=== PATIENT | female | born 1930 | race Caucasian/White ===

== ENCOUNTER → 2017-12-21 | Outpatient (REF) | payer MEDICARE, MEDICAID ==
[2017-10-04 13:49] VITALS: BMI 32.5
[~2017-12-21] MED LIST: ACET-2007 PO; ALBU8.5H IH; AMLO-99 PO; CALC-1088 PO; CALC-770 PO; CALC200T16 PO; CALC500T6 PO; CHOL10005 PO; CHOL200025 PO; CIPR-344 PO; CITA-139 PO; CLON-327 PO; FURO-47 PO; FURO40TA35 PO; GAB800PT PO; GABA-492 PO; GABA-503 PO; GABA-547 PO; GABA-551 PO; HYDR-2966 PO; HYDR25SU51 RC; LACT1CAP6 PO; LACT1CAP62 PO; LEVO50TA86 PO; LEVO88TA45 PO; LISI-362 PO; LISI-374 PO; LISI20TA29 PO; LOPE1LIQ49 PO; MAGN400C PO; METF-410 PO; METF-420 PO; METO-253 PO; METO-257 PO; METO200T12 PO; METO25TA93 PO; METO50TA19 PO; MULT-856 PO; OMEP-125 PO; ONDA4TAB PO; OXYB5TAB86 PO; PANT20TA27 PO; PNEU0.5D3 IM; POTA-30 PO; POTA20TA94 PO; PRAV80TA29 PO; PREG50CA48 PO; PRIM50TA FT; PRIM50TA PO; PROP40TA45 PO; SULF-198 PO; TRAM-420 PO; TRIA15CR40 TP; VITA15LO PO
== END ==
LOC: ZZLCC 12:42
PROVIDERS: ATTEND Family Medicine
DX: R30.0 Dysuria (principal)
CPT/HCPCS: 81001; 87088

== ENCOUNTER → 2018-01-09 | Outpatient (REF) | payer MEDICARE, MEDICAID ==
[2017-10-04 13:49] VITALS: BMI 32.5
== END ==
LOC: ZZLCC 02:07
PROVIDERS: ATTEND Family Medicine
DX: N39.0 Urinary tract infection, site not specified (principal)
CPT/HCPCS: 81001; 87077; 87088; 87186

== ENCOUNTER → 2018-01-11 | Outpatient (REF) | payer MEDICARE, MEDICAID ==
[2017-10-04 13:49] VITALS: BMI 32.5
== END ==
LOC: ZZSENDIN 13:27
PROVIDERS: ATTEND Family Medicine
DX: E03.9 Hypothyroidism, unspecified (principal); I10 Essential (primary) hypertension
CPT/HCPCS: 82310; 82374; 82435; 82565; 82947; 83036; 84132; 84295; 84443; 84520; 85027

== ENCOUNTER 2018-05-03 18:11 | Inpatient (IN) | payer MEDICARE, MEDICAID ==
[2017-10-04 13:49] VITALS: Ht 154.9 cm; Wt 86.6 kg
[~2018-05-03] VITALS: Ht 154.9 cm; Wt 86.6 kg
[~2018-05-03 18:11] MED LIST changes: -ACET-2146 PO; -BENZOCAINE PO; -CALC-488 PO; -CALC625T64 PO; -CLON1PAT20 TD; -DICL100G39 TOP; -ESTR42.5 TOP; -HYDR25SU34 RC; -NYST15PO4 TP; -PANT40TA65 PO; -SUCR1TAB51 PO; -SULF1TAB24 PO
[2018-05-03] MEDS ORDERED: NS(*) 0.9% 1000 ML BAG 1,000 ML IV ONE (18:25)
--- NOTE | 2018-05-03 18:30 | ER Report ---
History and Physical Time Seen By MD: 18:30 Hx. of Stated Complaint: PT BROUGHT VIA AMBULANCE FROM [facility] AT [facility]. PT APPARENTLY HAS HAD SOME CONCERNING LABS, VOMITED X 2 IN THE LAST 24 HRS. PT MAIN CFOMPLQAINT IS HER VAGINA HURTS. NOTES BURNING ON URINATION HPI/ROS CHIEF COMPLAINT: Abnormal lab tests, pain with urination HISTORY OF PRESENT ILLNESS: This is an 87-year-old female. She had some labs drawn at [facility] where she resides. Dr. Morris ordered these because of increasing weakness and falls. These showed some problems with her kidney function and her potassium and sodium levels. Potassium was elevated at 6.2 and sodium was low at 124. Her Creatinine usually is at 0.8 and now is 1.6. She was brought here by ambulance for further evaluation for these abnormal labs. Patient tells me that she has no real complaints at this time other than being fatigued more than usual and having some burning in her vaginal area when she urinates. She has a history of chronic dysuria. She also has had some nausea and has vomited twice in the hours just prior to coming to the hospital. She denies any chest pain. She does not feel short of breath. She does have some lower abdominal pain. Allergies: Coded Allergies: Penicillins (Verified Allergy, Unknown, 01/19/15) Uncoded Allergies: AVOIDS ASPIRIN (Adverse Reaction, Mild, DUE TO RECENT BLEEDING, 02/12/14) Home Meds Active Scripts Tramadol Hcl (TRAMADOL HCL) 50 Mg Tablet, 0.5 TAB PO TID, #90 TAB 0 Refills Prov:DELON MORRIS MD 11/20/17 Calcium Carbonate (CALCIUM ANTACID) 200 Mg Tab.chew, 500 MG PO PRN Y for HEARTBURN, #60 TAB.CHEW Prov:KELLY PEREZ MD 10/11/17 Acetaminophen (MAPAP) 325 Mg Tablet, 650 MG PO Q6H Y for PAIN OR FEVER 100 OR GREATER, #30 TAB Prov:KELLY PEREZ MD 10/11/17 Primidone (PRIMIDONE) 50 Mg Tab, 4 TAB PO HS, #120 TAB 2 Refills Prov:ИРИНА SENIOR MD 06/20/17 Levothyroxine Sodium (LEVOTHYROXINE SODIUM) 50 Mcg Tablet, 50 MCG PO QDAY, #30 TAB 11 Refills Prov:ИРИНА SENIOR MD 06/20/17 Reported Medications Metoprolol Succinate (METOPROLOL SUCCINATE) 50 Mg Tab.er.24h, 1 TAB PO QDAY, TAB 05/03/18 Calcium Polycarbophil (FIBER LAX) 625 Mg Tablet, 625 MG PO 05/03/18 Citalopram Hydrobromide (CITALOPRAM HBR) 20 Mg Tablet, 10 MG PO QDAY, #5 TAB 05/03/18 Clonidine (CLONIDINE 0.2 MG/DAY) 1 Each Patch.tdwk, 1 EACH TD Q7DAY, PATCH.WK 05/03/18 Lisinopril (LISINOPRIL) 40 Mg Tablet, 20 MG PO QHS, TAB 10/03/17 Calcium Carb/Vit D3/Minerals (CALCIUM +D & MINERALS CHEW TAB) 1 Each Tab.chew, 1 EACH PO DAILY, TAB.CHEW 08/17/15 Discontinued Reported Medications Gabapentin (NEURONTIN) 400 Mg Capsule, 800 MG PO HS, CAPSULE 11/01/17 Lactobacillus Combination No.4 (PROBIOTIC) 1 Each Capsule, 1 EACH PO QDAY, CAPSULE 12/16/14 Discontinued Scripts Sulfamethoxazole/Trimet 800-160 Mg Tab (BACTRIM DS TABLET) 1 Each Tablet, 1 TAB PO Q12H for 3 Days, #6 TAB Prov:DELON MORRIS MD 01/12/18 Gabapentin (NEURONTIN) 800 Mg Tab, 800 MG PO HS, #60 TAB Prov:KELLY PEREZ MD 11/01/17 Pantoprazole Sodium (PANTOPRAZOLE SODIUM) 20 Mg Tablet.dr, 20 MG PO QDAY, #30 TAB Prov:KELLY PEREZ MD 10/11/17 Metoprolol Succinate (METOPROLOL SUCCINATE) 50 Mg Tab.er.24h, 100 MG PO BID, # 120 TAB Prov:KELLY PEREZ MD 10/11/17 Albuterol Sulfate 90 Mcg/Act (PROAIR HFA 90 MCG/ACT) 8.5 Gm Hfa.aer.ad, 1-2 PUFF IH 3-4XD, #1 INHALER 11 Refills Prov:ИРИНА SENIOR MD 06/20/17 Clonidine Hcl (CLONIDINE HCL) 0.1 Mg Tablet, 0.1 MG PO BID for Blood Pressure, # 60 TAB 11 Refills Prov:ИРИНА SENIOR MD 06/20/17 Citalopram Hydrobromide (CITALOPRAM HBR) 20 Mg Tablet, 1 TAB PO QDAY, #30 TAB 11 Refills Prov:NADEENИРИНА Matute MD 06/20/17 Past Medical/Surgical History She is hard or hearing with dementia. Coronary artery disease with history of heart attack, COPD, gastroesophageal reflux disease and previous GI bleeding from ulcers, diverticulosis and diverticulitis, osteoarthritis, hypothyroidism, surgeries include CABG, appendectomy, cholecystectomy, colectomy due to diverticulitis, and back surgery. She has also had a small skin cancer removal from her neck in the past. Hx Smoking: No Smoking Status: Never Smoker Exposure to Second Hand Smoke?: No Hx Substance Use Disorder: No Hx Alcohol Use: Yes Constitutional Vital Sign - Last 24 Hours 05/03/18 05/03/18 05/03/18 05/03/18 18:11 18:12 18:13 18:26 Temp 98.4 Pulse 81 80 80 Resp 20 B/P (MAP) 126/57 (80) 134/61 Pulse Ox 96 97 97 O2 Delivery Nasal Cannula 05/03/18 05/03/18 05/03/18 05/03/18 18:30 18:41 18:56 19:01 Pulse 81 79 73 B/P (MAP) 125/51 (75) Pulse Ox 97 98 97 05/03/18 05/03/18 05/03/18 05/03/18 19:12 19:16 19:30 19:31 Pulse 66 66 Resp 16 13 B/P (MAP) 109/35 (59) 103/46 (65) Pulse Ox 98 99 05/03/18 05/03/18 05/03/18 05/03/18 19:46 20:00 20:01 20:16 Pulse 83 82 78 Resp 13 19 21 B/P (MAP) 110/54 (72) Pulse Ox 99 99 99 05/03/18 05/03/18 05/03/18 20:21 20:36 20:51 Pulse 81 77 81 Resp 18 19 20 Pulse Ox 98 97 98 Intake and Output 05/03/18 05/03/18 05/04/18 15:00 23:00 07:00 Output Total 20 ml Balance -20 ml Physical Exam General Appearance: The patient is alert. Hard or hearing. No acute distress. Eyes: Pupils are equal. Reactive to light. No pallor, injection or icterus. Extraocular movements are intact. ENT: Mucous membranes are moist. Normal oral mucosa. Posterior oropharynx is normal. Dentures. Neck: Supple and non tender. No lymphadenopathy. Respiratory: Lungs are clear to auscultation. Cardiovascular: Regular rate and rhythm. Chronic bilateral lower extremity edema. Gastrointestinal: Abdomen is soft and non tender. Nondistended. Neurological: Demented but pleasant. She is oriented to self, but not time or place at this time. Skin: Warm and dry. Musculoskeletal: Extremities are nontender other than a little pain in pretibial are when checking edema. DIFFERENTIAL DIAGNOSIS: After history and physical exam, differential diagnosis was considered for hyponatremia, hyperkalemia, changes in renal function with an elevated creatinine compared to normal, all of this with some increased weakness and falls. Medical Decision Making Data Points Result Diagram: 05/03/18192905/03/181929 Laboratory Hematology Test 05/03/18 19:30 05/03/18 19:49 Red Blood Count 3.01 M/uL (4.17-5.56) Mean Corpuscular Volume 93.7 fL (80.0-96.0) Mean Corpuscular Hemoglobin 32.1 pg (26.0-33.0) Mean Corpuscular Hemoglobin Concent 34.2 g/dL (32.0-36.0) Red Cell Distribution Width 14.0 % (11.5-14.5) Mean Platelet Volume 7.2 fL (7.2-11.1) Neutrophils (%) (Auto) 73.9 % (39.4-72.5) Lymphocytes (%) (Auto) 17.5 % (17.6-49.6) Monocytes (%) (Auto) 6.9 % (4.1-12.4) Eosinophils (%) (Auto) 1.3 % (0.4-6.7) Basophils (%) (Auto) 0.4 % (0.3-1.4) Nucleated RBC Relative Count (auto) 0.0 /100WBC Neutrophils # (Auto) 8.6 K/uL (2.0-7.4) Lymphocytes # (Auto) 2.0 K/uL (1.3-3.6) Monocytes # (Auto) 0.8 K/uL (0.3-1.0) Eosinophils # (Auto) 0.2 K/uL (0.0-0.5) Basophils # (Auto) 0.0 K/uL (0.0-0.1) Nucleated RBC Absolute Count (auto) 0.00 K/uL Peripheral Blood Smear Yes Y/N Blood Gas Puncture Site Right brachial Blood Gas Patient Temperature 98.4 DEGREES Arterial Blood pH 7.36 (7.35-7.45) Arterial Blood Partial Pressure CO2 33 mmHg (32-37) Arterial Blood Partial Pressure O2 99 mmHg (60-80) Arterial Blood HCO3 19 mmol/L (20-26) Arterial Blood Oxygen Saturation 97 % (92-100) Arterial Blood Base Excess -7.0 mmol/L Ricky Test Nt avail Oxygen Liters/Minute 2l Sodium Level 123 mmol/L (137-145) Potassium Level 6.0 mmol/L (3.5-5.0) Chloride Level 97 mmol/L (98-107) Carbon Dioxide Level 16 mmol/L (22-31) Blood Urea Nitrogen 94 mg/dl (7-18) Creatinine 1.70 mg/dl (0.52-1.04) Glomerular Filtration Rate Calc 28.4 Random Glucose 94 mg/dl (75-110) Calcium Level 7.7 mg/dl (8.4-10.2) Total Bilirubin 0.2 mg/dl (0.2-1.3) Aspartate Amino Transf (AST/SGOT) 16 U/L (0-35) Alanine Aminotransferase (ALT/SGPT) 21 U/L (0-56) Alkaline Phosphatase 71 U/L (0-126) Total Creatine Kinase < 20 U/L (30-135) Total Protein 6.0 g/dl (6.3-8.2) Albumin 2.9 g/dl (3.5-5.0) Urine Color Yellow Urine Clarity Turbid Urine pH 5.0 pH (4.8-9.5) Urine Specific [place] 1.011 Urine Protein 30 mg/dL (NEGATIVE) Urine Glucose (UA) Negative mg/dL (NEGATIVE) Urine Ketones Negative mg/dL (NEGATIVE) Urine Blood Negative (NEGATIVE) Urine Nitrite Negative (NEGATIVE) Urine Bilirubin Negative (NEGATIVE) Urine Urobilinogen Negative mg/dL (0.2-1.9) Urine Leukocyte Esterase Large (NEGATIVE) Urine RBC 18 /HPF (0-2/HPF) Urine WBC 3021 /HPF (0-5/HPF) Urine WBC Clumps Many /HPF Urine Squamous Epithelial Cells Many /LPF (NONE-FEW) Urine Transitional Epithelial Cells Many /LPF (NONE-FEW) Urine Bacteria Many /HPF (NONE-FEW) Urine Mucus Few /HPF (NONE-FEW) Chemistry Test 05/03/18 19:30 05/03/18 19:49 White Blood Count 11.6 k/uL (4.5-11.0) Red Blood Count 3.01 M/uL (4.17-5.56) Hemoglobin 9.6 g/dL (12.0-16.0) Hematocrit 28.2 % (34.0-47.0) Mean Corpuscular Volume 93.7 fL (80.0-96.0) Mean Corpuscular Hemoglobin 32.1 pg (26.0-33.0) Mean Corpuscular Hemoglobin Concent 34.2 g/dL (32.0-36.0) Red Cell Distribution Width 14.0 % (11.5-14.5) Platelet Count 292 K/uL (150-450) Mean Platelet Volume 7.2 fL (7.2-11.1) Neutrophils (%) (Auto) 73.9 % (39.4-72.5) Lymphocytes (%) (Auto) 17.5 % (17.6-49.6) Monocytes (%) (Auto) 6.9 % (4.1-12.4) Eosinophils (%) (Auto) 1.3 % (0.4-6.7) Basophils (%) (Auto) 0.4 % (0.3-1.4) Nucleated RBC Relative Count (auto) 0.0 /100WBC Neutrophils # (Auto) 8.6 K/uL (2.0-7.4) Lymphocytes # (Auto) 2.0 K/uL (1.3-3.6) Monocytes # (Auto) 0.8 K/uL (0.3-1.0) Eosinophils # (Auto) 0.2 K/uL (0.0-0.5) Basophils # (Auto) 0.0 K/uL (0.0-0.1) Nucleated RBC Absolute Count (auto) 0.00 K/uL Peripheral Blood Smear Yes Y/N Blood Gas Puncture Site Right brachial Blood Gas Patient Temperature 98.4 DEGREES Arterial Blood pH 7.36 (7.35-7.45) Arterial Blood Partial Pressure CO2 33 mmHg (32-37) Arterial Blood Partial Pressure O2 99 mmHg (60-80) Arterial Blood HCO3 19 mmol/L (20-26) Arterial Blood Oxygen Saturation 97 % (92-100) Arterial Blood Base Excess -7.0 mmol/L Ricky Test Nt avail Oxygen Liters/Minute 2l Glomerular Filtration Rate Calc 28.4 Calcium Level 7.7 mg/dl (8.4-10.2) Total Bilirubin 0.2 mg/dl (0.2-1.3) Aspartate Amino Transf (AST/SGOT) 16 U/L (0-35) Alanine Aminotransferase (ALT/SGPT) 21 U/L (0-56) Alkaline Phosphatase 71 U/L (0-126) Total Creatine Kinase < 20 U/L (30-135) Total Protein 6.0 g/dl (6.3-8.2) Albumin 2.9 g/dl (3.5-5.0) Urine Color Yellow Urine Clarity Turbid Urine pH 5.0 pH (4.8-9.5) Urine Specific [place] 1.011 Urine Protein 30 mg/dL (NEGATIVE) Urine Glucose (UA) Negative mg/dL (NEGATIVE) Urine Ketones Negative mg/dL (NEGATIVE) Urine Blood Negative (NEGATIVE) Urine Nitrite Negative (NEGATIVE) Urine Bilirubin Negative (NEGATIVE) Urine Urobilinogen Negative mg/dL (0.2-1.9) Urine Leukocyte Esterase Large (NEGATIVE) Urine RBC 18 /HPF (0-2/HPF) Urine WBC 3021 /HPF (0-5/HPF) Urine WBC Clumps Many /HPF Urine Squamous Epithelial Cells Many /LPF (NONE-FEW) Urine Transitional Epithelial Cells Many /LPF (NONE-FEW) Urine Bacteria Many /HPF (NONE-FEW) Urine Mucus Few /HPF (NONE-FEW) Urinalysis Test 05/03/18 19:49 Urine Color Yellow Urine Clarity Turbid Urine pH 5.0 pH (4.8-9.5) Urine Specific [place] 1.011 Urine Protein 30 mg/dL (NEGATIVE) Urine Glucose (UA) Negative mg/dL (NEGATIVE) Urine Ketones Negative mg/dL (NEGATIVE) Urine Blood Negative (NEGATIVE) Urine Nitrite Negative (NEGATIVE) Urine Bilirubin Negative (NEGATIVE) Urine Urobilinogen Negative mg/dL (0.2-1.9) Urine Leukocyte Esterase Large (NEGATIVE) Urine RBC 18 /HPF (0-2/HPF) Urine WBC 3021 /HPF (0-5/HPF) Urine WBC Clumps Many /HPF Urine Squamous Epithelial Cells Many /LPF (NONE-FEW) Urine Transitional Epithelial Cells Many /LPF (NONE-FEW) Urine Bacteria Many /HPF (NONE-FEW) Urine Mucus Few /HPF (NONE-FEW) EKG/Imaging EKG Interpretation 12 lead EKG: Rhythm: Sinus rhythm with first-degree AV block, rate 78 [place]: Left axis deviation QRS: Incomplete bundle ST segments: No ST elevation or depression, normal appearing T waves ED Course/Re-evaluation Clinical Indication for ER IV: Hydration, IV Access ED Course Repeat blood testing done and re-demonstrated the lab abnormalities. No sign of arrhythmia on EKG. Urinalysis by in-and-out catheter was done and shows evidence of urinary infection. The patient had a 500cc bolus of normal saline followed by 250cc/hr. Called and discussed with Dr. Clark. Blood and urine cultures obtained and admitted. Discussed with the patient's daughter. She is not sure of code status at this point and will be discussing with other family members and get back. At the present time, will have her a full code unless something happens that is not survivable. Decision to Disposition Date: May 03, 2018 Decision to Disposition Time: 20:45 Depart Departure Latest Vital Signs Vital Signs Date Time Temp Pulse Resp B/P (MAP) Pulse Ox O2 Delivery O2 Flow Rate FiO2 05/03/18 20:51 81 20 98 05/03/18 20:00 110/54 (72) 05/03/18 18:13 98.4 Nasal Cannula Impression: Primary Impression: Urinary tract infection Additional Impressions: Hyperkalemia Hyponatremia Condition: Condition Unchanged Disposition: Admitted from ER Problem Qualifiers Primary Impression: Urinary tract infection Urinary tract infection type: site unspecified Hematuria presence: without hematuria Qualified Codes: N39.0 - Urinary tract infection, site not specified YELITAZ DHILLON MD May 03, 2018 18:29
[2018-05-03] MEDS ORDERED: METO50TA19 PO (18:39)
[2018-05-03] MEDS ORDERED: CALC625T64 PO (18:39)
[2018-05-03] MEDS ORDERED: CITA-145 PO (18:39)
[2018-05-03] MEDS ORDERED: CLON1PAT20 TD (18:39)
--- NOTE | 2018-05-03 18:46 | EKG ---
FACILITY: [facility] - [place] PATIENT NAME: GERARD PITTMAN : [id number] MR: [id number] V: [id number] EXAM DATE: ORDERING PHYSICIAN: YELITZA DHILLON TECHNOLOGIST: RON Sandhu Reason : Blood Pressure : / mmHG Vent. Rate : 078 BPM Atrial Rate : 078 BPM P-R Int : 312 ms QRS Dur : 106 ms QT Int : 374 ms P-R-T Axes : 071 -36 082 degrees QTc Int : 426 ms Sinus rhythm with 1st degree AV block Left axis deviation Incomplete left bundle branch block Left atrial enlargement. Abnormal ECG No previous ECGs available Confirmed by MARCELO DEL RIO ([id number]) on 05/03/2018 7:56:10 PM Referred By: Confirmed By:MARCELO DEL RIO
[2018-05-03 19:43] LABS: PLATELET COUNT, AUTOMATED 292 K/uL (150-450)
--- NOTE | 2018-05-03 20:51 | History & Physical ---
History of Present Illness Chief Complaint Weakness and lower abd pain. History of Present Illness 87 yr old lady sent from [facility] after lab data showed significant electrolyte changes along with reported weakness and lower abd pain. Patient has dementia and not able to provide much history. Has a myriad of previous medical problems as documented. Due to changes in Na+ and K+ and probably UTI, ER doc advised admission. Some dysuria. Nausea and emesis x2 today. No diarrhea. History Problems: (1) Weakness Status: Chronic (2) Lumbar disc disease Status: Chronic (3) Coronary artery disease Status: Chronic Comment: S/P CABG (4) Hypertension Status: Chronic (5) Type II diabetes mellitus Status: Chronic (6) Hypothyroid Status: Chronic (7) Urge incontinence Status: Chronic (8) Essential tremor Status: Chronic (9) Osteopenia Status: Chronic (10) Diverticulosis Status: Chronic (11) Vitamin D insufficiency Status: Chronic Home Meds Active Scripts Tramadol Hcl (TRAMADOL HCL) 50 Mg Tablet, 0.5 TAB PO TID, #90 TAB 0 Refills Prov:DELON MORRIS MD 11/20/17 Calcium Carbonate (CALCIUM ANTACID) 200 Mg Tab.chew, 500 MG PO PRN Y for HEARTBURN, #60 TAB.CHEW Prov:KELLY PEREZ MD 10/11/17 Acetaminophen (MAPAP) 325 Mg Tablet, 650 MG PO Q6H Y for PAIN OR FEVER 100 OR GREATER, #30 TAB Prov:KELLY PEREZ MD 10/11/17 Primidone (PRIMIDONE) 50 Mg Tab, 4 TAB PO HS, #120 TAB 2 Refills Prov:ИРИНА ESNIOR MD 06/20/17 Levothyroxine Sodium (LEVOTHYROXINE SODIUM) 50 Mcg Tablet, 50 MCG PO QDAY, #30 TAB 11 Refills Prov:ИРИНА SENIOR MD 06/20/17 Reported Medications Metoprolol Succinate (METOPROLOL SUCCINATE) 50 Mg Tab.er.24h, 1 TAB PO QDAY, TAB 05/03/18 Calcium Polycarbophil (FIBER LAX) 625 Mg Tablet, 625 MG PO 05/03/18 Citalopram Hydrobromide (CITALOPRAM HBR) 20 Mg Tablet, 10 MG PO QDAY, #5 TAB 05/03/18 Clonidine (CLONIDINE 0.2 MG/DAY) 1 Each Patch.tdwk, 1 EACH TD Q7DAY, PATCH.WK 05/03/18 Lisinopril (LISINOPRIL) 40 Mg Tablet, 20 MG PO QHS, TAB 10/03/17 Calcium Carb/Vit D3/Minerals (CALCIUM +D & MINERALS CHEW TAB) 1 Each Tab.chew, 1 EACH PO DAILY, TAB.CHEW 08/17/15 Discontinued Reported Medications Gabapentin (NEURONTIN) 400 Mg Capsule, 800 MG PO HS, CAPSULE 11/01/17 Lactobacillus Combination No.4 (PROBIOTIC) 1 Each Capsule, 1 EACH PO QDAY, CAPSULE 12/16/14 Discontinued Scripts Sulfamethoxazole/Trimet 800-160 Mg Tab (BACTRIM DS TABLET) 1 Each Tablet, 1 TAB PO Q12H for 3 Days, #6 TAB Prov:DELON MORRIS MD 01/12/18 Gabapentin (NEURONTIN) 800 Mg Tab, 800 MG PO HS, #60 TAB Prov:KELLY PEREZ MD 11/01/17 Pantoprazole Sodium (PANTOPRAZOLE SODIUM) 20 Mg Tablet.dr, 20 MG PO QDAY, #30 TAB Prov:KELLY PEREZ MD 10/11/17 Metoprolol Succinate (METOPROLOL SUCCINATE) 50 Mg Tab.er.24h, 100 MG PO BID, # 120 TAB Prov:KELLY PEREZ MD 10/11/17 Albuterol Sulfate 90 Mcg/Act (PROAIR HFA 90 MCG/ACT) 8.5 Gm Hfa.aer.ad, 1-2 PUFF IH 3-4XD, #1 INHALER 11 Refills Prov:ИРИНА SENIOR MD 06/20/17 Clonidine Hcl (CLONIDINE HCL) 0.1 Mg Tablet, 0.1 MG PO BID for Blood Pressure, # 60 TAB 11 Refills Prov:ИРИНА SENIOR MD 06/20/17 Citalopram Hydrobromide (CITALOPRAM HBR) 20 Mg Tablet, 1 TAB PO QDAY, #30 TAB 11 Refills Prov:ИРИНА SENIOR MD 06/20/17 Allergies: Coded Allergies: Penicillins (Verified Allergy, Unknown, 01/19/15) Uncoded Allergies: AVOIDS ASPIRIN (Adverse Reaction, Mild, DUE TO RECENT BLEEDING, 02/12/14) Patient History: FH: colon cancer MOTHER, Onset: FH: coronary artery disease FATHER BROTHER OR SISTER BROTHER OR SISTER FHx: diabetes mellitus BROTHER OR SISTER BROTHER OR SISTER Hx Smoking: No Smoking Status: Never Smoker Exposure to Second Hand Smoke?: No Caffeine Intake: Coffee Caffeine/Cups Per Day: 1 Hx Alcohol Use: Yes Hx Substance Use Disorder: No Review of Systems Neurological: Confusion, Weakness Cardiovascular: Orthostatic Hypotension Respiratory: No Shortness of Breath, No Cough, No Wheezing Gastrointestinal: Nausea, Vomiting, Abdominal Pain Genitourinary: Dysuria Musculoskeletal: Impaired Mobility Exam Vital Signs Vital Signs Date Time Temp Pulse Resp B/P (MAP) Pulse Ox O2 Delivery O2 Flow Rate FiO2 05/03/18 20:51 81 20 98 05/03/18 20:00 110/54 (72) 05/03/18 18:13 98.4 Nasal Cannula General Appearance: Awake, No Acute Distress, Afebrile Neuro: Other (Mostly confused to recent events and past history) Cardiovascular: Regular Rate and Rhythm, Other (VERY soft S1S2. ) Respiratory: Clear to Auscultation Chest: No Tenderness GI: Other (BS are active. Moderate tenderness directly over bladder. No organomegaly or masses.) : No CVA Tenderness Extremities: Soft and Non Tender, Warm, Pulses, Perfused, Other (Bilat edema 1/ 4 below knees.) Integumentary: Other (Superficial pressure lesions left groin and right buttock. These are clean and not infected in appearance. ) Psych: Appropriate Mood & Affect, Other (Oriented to place/ person only.) Medical Decision Making Data Points Result Diagram: 05/03/18192905/03/181929 Item Value Date Time Urine Clarity Turbid 05/03/181948 Urine pH 5.0 pH 05/03/181948 Urine Specific [place] 1.011 05/03/181948 Urine Protein 30 mg/dL 05/03/181948 Urine Glucose (UA) Negative mg/dL 05/03/181948 Urine Ketones Negative mg/dL 05/03/181948 Urine Blood Negative 05/03/181948 Urine Nitrite Negative 05/03/181948 Urine Bilirubin Negative 05/03/181948 Urine Urobilinogen Negative mg/dL 05/03/181948 Urine Leukocyte Esterase Large H 05/03/181948 Urine RBC 18 /HPF 05/03/181948 Urine WBC 3021 /HPF 05/03/181948 Urine WBC Clumps Many /HPF 05/03/181948 Urine Squamous Epithelial Cells Many /LPF H 05/03/181948 Urine Transitional Epithelial Cells Many /LPF H 05/03/181948 Urine Bacteria Many /HPF H 05/03/181948 Calcium Level 7.7 mg/dl L 05/03/181929 Total Bilirubin 0.2 mg/dl 05/03/181929 Aspartate Amino Transf (AST/SGOT) 16 U/L 05/03/181929 Alanine Aminotransferase (ALT/SGPT) 21 U/L 05/03/181929 Total Creatine Kinase < 20 U/L L 05/03/181929 Total Protein 6.0 g/dl L 05/03/181929 Albumin 2.9 g/dl L 05/03/181929 Arterial Blood pH 7.36 05/03/181929 Arterial Blood Partial Pressure CO2 33 mmHg 05/03/181929 Arterial Blood Partial Pressure O2 99 mmHg *H 05/03/181929 Arterial Blood HCO3 19 mmol/L L 05/03/181929 EKG / Imaging EKG Interpretation Reviewed. Monitor Interpretation: Normal Sinus Rhythm Pre-Admit Course ED Medications Reviewed. Medical Record Review: Yes Assessment and Plan Problems: (1) Hyponatremia Status: Acute Assessment & Plan: Most likely due to lisinopril and possible GI symptoms ( emesis). Will hold lisinopril. IV NS slowly with follow-up labs later this evening and in AM. (2) Hyperkalemia Status: Acute Assessment & Plan: Probably due to acute renal changes and emesis. Will hold lisinopril and recheck lab later this evening. (3) Urinary tract infection Status: Acute Assessment & Plan: UA abnormal. Culture done. Blood cultures pending. Will start antibiotics IV initially with levaquin 250 mg with reassessment of renal function in AM. She says her penicillin allergy was itching and throat closing so will avoid penicillins and any relatives such as cephalosporins and penems. (4) ARF (acute renal failure) Status: Acute Assessment & Plan: Creat usually 0.5 or so. Now 1.7 due to emesis, poor fluid intake and lower BP. Will start NS IV and hold BP meds. Recheck in AM. Will need to alter antibiotic dose if creat not improved in AM. (5) Hypothyroid Status: Chronic Assessment & Plan: Continue current meds. (6) Hypertension Status: Chronic Assessment & Plan: Hold lisinopril, clonidine and metoprolol since BP l00-120 systolic. (7) Coronary artery disease Status: Chronic (8) Dementia Status: Chronic Assessment & Plan: Stable. No current treatment. Time Spent on Plan of Care: > 30 min Copies to: DELON MORRIS MD Venous Thromboembolism VTE Risk Physician Assess for VTE Risk: Yes Patient's VTE Risk: High VTE Diagnostic Test 2 Days Prior to Admit: No Antithrombotics Is Pt On Any Antithrombotics?: No Prophylaxis Tx Contraindicated Pharmacological Contraindicati: Renal Impairment Exam Sepsis Risk: No Definite Risk Problem Qualifiers (1) Urinary tract infection: Urinary tract infection type: site unspecified Hematuria presence: without hematuria Qualified Codes: N39.0 - Urinary tract infection, site not specified SOCORRO DEL RIO MD FACP May 03, 2018 20:51
[2018-05-03] MEDS ORDERED: cefTRIAXone 1 GM VIAL IVP ONE (20:55)
[2018-05-03 21:20] VITALS: BP 134/59
[2018-05-03] MEDS: NS(*) 0.9% 1000 ML BAG 1,000 ML IV SCH (22:25)
[2018-05-03] MEDS ORDERED: LEVOFLOXACIN/D5W 250 MG/50 ML 50 ML IVPB ONE (23:00)
[2018-05-04] MEDS ORDERED: ACET-2146 PO (02:55)
[2018-05-04] MEDS ORDERED: DICL100G39 TOP (02:55)
[2018-05-04] MEDS ORDERED: ESTR42.5 TOP (02:55)
[2018-05-04] MEDS ORDERED: CLON-327 PO (02:55)
[2018-05-04] MEDS ORDERED: NYST15PO4 TP (02:55)
[2018-05-04] MEDS ORDERED: CHOL10005 PO (02:55)
[2018-05-04 03:06] VITALS: BP 119/52
[2018-05-04] MEDS ORDERED: HYDR25SU34 RC (03:39)
[2018-05-04] MEDS ORDERED: BENZOCAINE PO (03:39)
[2018-05-04] MEDS ORDERED: CALC-488 PO (03:39)
[2018-05-04] MEDS: LEVOTHYROXINE SOD 0.05 MG TAB PO SCH (05:50)
[2018-05-04] MEDS ORDERED: LEVOTHYROXINE SOD 0.05 MG TAB PO SCH (06:00)
[2018-05-04 07:17] LABS: PLATELET COUNT, AUTOMATED 266 K/uL (150-450)
[2018-05-04 08:15] VITALS: BP 141/78
[2018-05-04] MEDS: NS(*) 0.9% 1000 ML BAG 1,000 ML IV SCH ×2 (08:36→19:01)
--- NOTE | 2018-05-04 09:32 | Antimicrobial Stewardship Note ---
Antimicrobial Stewardship Note Note Antimicrobial Stewardship Note: 87 yo F who presented with weakness, dysuria, nausea, vomiting, and abdominal pain. Pt with a history of dementia, unable to provide much history. Afebrile WBC 11.6 K- 6 on admission (could be secondary to lisinopril, recent Bactrim use) CrCl ~36ml/min UA- leukocyte esterase (+), many bacteria, 3021 WBC (+), (+) squamous and transitional cells ---cath UA Urine Cx pending Blood Cx x 2 pending Allergies: PCN - anaphylaxis 1. UTI- symptomatic, elevated WBC, UA (+) - unclear if truly cath UA- contaminated. Recommend treatment with levofloxacin 250mg po daily for 3-5 days. Follow cultures and sensitivities. Scr has improved to 1.1, CrCl appropriate for levofloxacin 250mg po daily. Raquel Hirsch, PharmD, OP RAQUEL HIRSCH May 04, 2018 09:32
--- NOTE | 2018-05-04 10:32 | Hospitalist Progress Note ---
Subjective Progress Notes Subjective This patient was admitted for a urinary infection. She had no acute changes overnight. Patient Complains of: Cardiovascular: No: Chest Pain Respiratory: No: Shortness of Breath Physical Exam Vital Signs Date Time Temp Pulse Resp B/P (MAP) Pulse Ox O2 Delivery O2 Flow Rate FiO2 05/04/18 03:06 98.4 87 119/52 (74) 96 Nasal Cannula 2.0 05/03/18 21:20 20 Intake and Output 05/05/18 07:00 Intake Total 1195 ml Balance 1195 ml Intake Oral 120 ml IV Total 1075 ml Cardiovascular: Regular Rate and Rhythm Respiratory: Clear to Auscultation Extremities: No Edema Integumentary: No Cyanosis Result Diagram: 05/04/18 0539 05/04/18 0539 Item Value Date Time Blood Culture - Preliminary Resulted 05/03/182100 Blood NO GROWTH AFTER 1 DAY, REINCUBATED Blood Culture - Preliminary Resulted 05/03/182054 Blood NO GROWTH AFTER 1 DAY, REINCUBATED Monitor Interpretation: Normal Sinus Rhythm Assessment and Plan Problems: (1) Hyponatremia Status: Acute Assessment & Plan: Her levels have been improving with IV fluids and stopping her lisinopril. (2) Hyperkalemia Status: Acute Assessment & Plan: Improved after stopping lisinopril. (3) Urinary tract infection Status: Acute Assessment & Plan: She did have large leukocytes on her urinalysis, but it was a contaminated sample. A culture is pending. We have elected to place her on a 3 day course of levofloxacin. (4) ARF (acute renal failure) Status: Acute Assessment & Plan: Improving with IV fluids. (5) Hypothyroid Status: Chronic Assessment & Plan: She is on chronic treatment with Synthroid. (6) Hypertension Status: Chronic Assessment & Plan: She had been on chronic treatment with lisinopril, clonidine , and metoprolol. All of these are currently on hold. Exam Sepsis Risk: No Definite Risk Problem Qualifiers (1) Urinary tract infection: Urinary tract infection type: site unspecified Hematuria presence: without hematuria Qualified Codes: N39.0 - Urinary tract infection, site not specified FEROZ WAY DO May 04, 2018 10:32
[2018-05-04 11:09] VITALS: BP 156/90
--- NOTE | 2018-05-04 13:18 | Medical Nutrition Therapy ---
Nutrition Anthropometrics Height (Inches): 61.00 Height (Calculated Centimeters: 154.237351 Weight (Pounds): 191 Weight (Calculated Kilograms): 86.636 Manjinder Nutrition Score: Adequate Manjinder Nutrition Risk Score: 12 Dietary Referral Nutrition Risk Factors: Nutrition Risk Comment: Physical Findings Physical Appearance: Obese BMI 30-39 Skin Appearance Skin Appearance: Edema Edema Location Modifier: Both Edema Location: Leg Type of Edema: Degree of Edema: 1+ Gastrointestinal Symptoms GI Symtoms: Nausea Tube Present: Bowel Sounds: Recent Bowel Pattern: Stool Characteristics: Nutritional Diagnosis Nutritional Risk Acuity 1: Acute/ES Renal Nutritional Risk Acuity 4: Good Appetite Past Medical History: T2DM,CAD,CABG, [place], GERD, diverticulosis, UTI, ARF, hyponatremia, hypokalemia, HTN Nutritional Acuity: 1-High Nutrition Problem/Etiology/Sym: Altered nutrition lab values related to physiological causes as evidence by improper kidney function with altered Na (130), K+ (5.6) and dehydration. Energy Requirement: 1346 ([place] Adj BMI >27.5) Protein Requirement: 69 (.8g/kg) Fluid Requirement: 2175 (25ml/kg >75yrs ) Diet Type: Diet as Tolerated NIKHIL/REG Nutrition Intervention: Encourage intake, Change diet (ADA diet ) Nutrition Monitoring & Eval Nutrition Goals: Eat 50-100% Meal RD Patient Assessment Time: [address] Assessment Type: RD Assessment Patient Nutrition Acuity: 1-High Follow Up Date: May 07, 2018 Nutritional Comment: 05/04 Pt admitted for UTI. Pt came in with nausea, weakness, fatigue and mild abdominal pain. Pt states that it hurts/rayo to urinate. Pt does have ARF. Creatinine continues to increase today it is (1.1). BUN (71) and K+ (5.6). Pt is on regular diet with 60% oral intake. Pt has low H/H, alb (2.5) and Na ranging from (123-130). Pt is on regular diet with 60% oral intake. Pt may benefit from ADA diet based on her hx T2DM. Will continue to monitor pt progress, labs, and encourage intake. -YULIA COLBERT May 04, 2018 11:58
[2018-05-04 14:54] VITALS: BP 126/53
[2018-05-04 19:53] VITALS: BP 129/83
[2018-05-04] MEDS ORDERED: LEVOFLOXACIN 500 MG TAB PO SCH (22:00)
[2018-05-05 03:07] VITALS: BP 111/54
[2018-05-05] MEDS: NS(*) 0.9% 1000 ML BAG 1,000 ML IV SCH ×2 (04:56→09:46)
[2018-05-05] MEDS: LEVOTHYROXINE SOD 0.05 MG TAB PO SCH (05:57)
[2018-05-05 07:12] VITALS: BP 128/78
[2018-05-05] MEDS: METOPROLOL SUCC XL 50 MG TABCR 50 MG TAB.ER.24H PO SCH (10:26)
[2018-05-05 10:42] VITALS: BP 130/67
[2018-05-05] MEDS: TRIMETH IVPB SCH ×2 (10:42→23:15)
[2018-05-05] MEDS: HYPROMELLOSE 0.4% LUB 15ML BTL OU PRN (10:42)
[2018-05-05] MEDS: D5W IVPB SCH ×2 (10:42→23:15)
[2018-05-05] MEDS: SULFA IVPB SCH ×2 (10:42→23:15)
--- NOTE | 2018-05-05 11:06 | Hospitalist Progress Note ---
Subjective Progress Notes Subjective No new problems reported. Urine culture is growing rather resistant E. coli. Physical Exam Vital Signs Date Time Temp Pulse Resp B/P (MAP) Pulse Ox O2 Delivery O2 Flow Rate FiO2 05/05/18 10:42 98.3 103 16 130/67 (88) 96 Nasal Cannula 1.0 Intake and Output 05/06/18 07:00 Intake Total 240 ml Balance 240 ml Intake Oral 240 ml # Voids 1 General Appearance: Alert, Awake Result Diagram: 05/04/18 0539 05/05/18 0526 Assessment and Plan Problems: (1) Hyponatremia Status: Acute Assessment & Plan: Her levels have been improving with IV fluids and stopping her lisinopril. (2) Hyperkalemia Status: Acute Assessment & Plan: Improved/resolved after stopping lisinopril. (3) Urinary tract infection Status: Acute Assessment & Plan: She did have large leukocytes on her urinalysis. Culture is growing fairly resistant E. coli. Will switch to IV Bactrim. (4) ARF (acute renal failure) Status: Acute Assessment & Plan: Improved with IV fluids. Creatinine is now normal at 0.7. (5) Hypothyroid Status: Chronic Assessment & Plan: She is on chronic treatment with Synthroid. (6) Hypertension Status: Chronic Assessment & Plan: She had been on chronic treatment with lisinopril, clonidine , and metoprolol. Lisinopril and clonidine have been stopped. We will resume her metoprolol. Exam Sepsis Risk: No Definite Risk Problem Qualifiers (1) Urinary tract infection: Urinary tract infection type: site unspecified Hematuria presence: without hematuria Qualified Codes: N39.0 - Urinary tract infection, site not specified REBEKAH PEREZ MD May 05, 2018 11:06
[2018-05-05 14:42] VITALS: BP 124/61
[2018-05-05 19:30] VITALS: BP 154/72
[2018-05-05] MEDS: PRIMIDONE 50 MG TAB PO SCH (20:33)
[2018-05-06 02:36] VITALS: BP 145/86
[2018-05-06] MEDS: NS(*) 0.9% 1000 ML BAG 1,000 ML IV SCH (03:41)
[2018-05-06] MEDS: LEVOTHYROXINE SOD 0.05 MG TAB PO SCH (05:52)
[2018-05-06 06:57] LABS: PLATELET COUNT, AUTOMATED 218 K/uL (150-450)
[2018-05-06 07:31] VITALS: BP 137/58
[2018-05-06] MEDS: METOPROLOL SUCC XL 50 MG TABCR 50 MG TAB.ER.24H PO SCH (09:37)
[2018-05-06] MEDS: NITROFURANTOIN MONO 100 MG PO SCH ×2 (09:37→21:20)
[2018-05-06 11:12] VITALS: BP 124/91
--- NOTE | 2018-05-06 11:12 | Hospitalist Progress Note ---
Subjective Progress Notes Subjective Still having vaginal burning/dysuria. Unchanged from prior to admission. Otherwise doing well. Physical Exam Vital Signs Date Time Temp Pulse Resp B/P (MAP) Pulse Ox O2 Delivery O2 Flow Rate FiO2 05/06/18 08:00 Nasal Cannula 1.0 05/06/18 07:31 98.5 96 14 137/58 (84) 95 Intake and Output 05/07/18 07:00 Intake Total 240 ml Balance 240 ml Intake Oral 240 ml # Voids 1 General Appearance: Alert, Awake, No Acute Distress Integumentary: No Jaundice, No Cyanosis Result Diagram: 05/06/1856 05/06/18555 Assessment and Plan Problems: (1) Hyponatremia Status: Acute Assessment & Plan: Her levels have been improving with IV fluids and stopping her lisinopril. Continue to follow. Will saline lock. (2) Anemia Status: Acute Assessment & Plan: Etiology unclear. No evidence of blood loss. Will stop IV Bactrim. Recheck Hgb at 1300 with B12/Folate/Iron studies/LDH/Haptoglobin/ reticulocyte count. Will check for occult blood in stools. She is asymptomatic. (3) Hyperkalemia Status: Acute Assessment & Plan: Improved/resolved after stopping lisinopril. (4) Urinary tract infection Status: Acute Assessment & Plan: She did have large leukocytes on her urinalysis. Culture is growing fairly resistant E. coli. She received IV Bactrim on 05/05. She is afebrile and has a normal WBC. Will switch to oral nitrofurantoin because stopping Bactrim related to the anemia. (5) ARF (acute renal failure) Status: Acute Assessment & Plan: Improved with IV fluids. Creatinine is now normal at 0.7. (6) Hypothyroid Status: Chronic Assessment & Plan: She is on chronic treatment with Synthroid. (7) Hypertension Status: Chronic Assessment & Plan: She had been on chronic treatment with lisinopril, clonidine , and metoprolol. Lisinopril and clonidine have been stopped. Metoprolol resumed. Exam Sepsis Risk: No Definite Risk Problem Qualifiers (1) Urinary tract infection: Urinary tract infection type: site unspecified Hematuria presence: without hematuria Qualified Codes: N39.0 - Urinary tract infection, site not specified HARIKA MARTINEZ MD May 06, 2018 11:12
[2018-05-06 13:28] LABS: PLATELET COUNT, AUTOMATED 252 K/uL (150-450)
[2018-05-06 16:02] VITALS: BP 131/75
[2018-05-06] MEDS: SUCRALFATE 1 GM TAB PO SCH ×2 (17:06→21:20)
[2018-05-06] MEDS: PANTOPRAZOLE SOD 40 MG IV VIAL IVP SCH (17:17)
[2018-05-06 21:23] VITALS: BP 146/75
[2018-05-06] MEDS: PRIMIDONE 50 MG TAB PO SCH (21:23)
[2018-05-07 04:12] VITALS: BP 146/75
[2018-05-07] MEDS: PANTOPRAZOLE SOD 40 MG IV VIAL IVP SCH ×2 (05:12→16:52)
[2018-05-07] MEDS: LEVOTHYROXINE SOD 0.05 MG TAB PO SCH (05:44)
[2018-05-07] MEDS: SUCRALFATE 1 GM TAB PO SCH ×4 (05:45→20:44)
[2018-05-07 06:15] LABS: PLATELET COUNT, AUTOMATED 230 K/uL (150-450)
[2018-05-07 07:55] VITALS: BP 135/69
--- NOTE | 2018-05-07 08:52 | General Surgery Consultation ---
History of Present Illness Requesting Physician Dr. Bueno, hospitalist service Reason for Consult Melena with anemia Chief Complaint Weakness History of Present Illness 87-year-old female is admitted to the hospitalist service with a urinary tract infection and hyperkalemia. She is also been found to have anemia which is getting worse during this hospitalization. She has been observed to have several melanotic stools by nursing. The patient denies any abdominal pain. She does have dementia and so history is difficult to obtain from her although she is alert and does cooperate the best that she can. She does admit to having a previous history of bleeding from her GI tract and underwent an EGD and colonoscopy in [place] [address] Lara. She cannot tell me with these results were. History Problems: (1) Knee pain Status: Chronic (2) Lumbar disc disease Status: Chronic (3) Weakness Status: Chronic (4) Dementia Status: Chronic (5) Coronary artery disease Status: Chronic (6) Hypertension Status: Chronic (7) Type II diabetes mellitus Status: Chronic (8) Hypothyroid Status: Chronic (9) Urge incontinence Status: Chronic (10) Essential tremor Status: Chronic (11) Osteopenia Status: Chronic (12) Diverticulosis Status: Chronic (13) Vitamin D insufficiency Status: Chronic (14) Hypoxia Onset Date: 07/21/2015 Status: Chronic Home Meds Active Scripts Tramadol Hcl (TRAMADOL HCL) 50 Mg Tablet, 0.5 TAB PO TID, #90 TAB 0 Refills Prov:DELON MORRIS MD 11/20/17 Primidone (PRIMIDONE) 50 Mg Tab, 4 TAB PO HS, #120 TAB 2 Refills Prov:ИРИНА SENIOR MD 06/20/17 Levothyroxine Sodium (LEVOTHYROXINE SODIUM) 50 Mcg Tablet, 50 MCG PO QDAY, #30 TAB 11 Refills Prov:ИРИНА SENIOR MD 06/20/17 Reported Medications [benzocaine lozenge] No Conflict Check, 1 UNIT PO every 24 hours Y for prn 05/04/18 Calcium Carbonate (CALCIUM CARBONATE) 500 Mg Tablet, 500 MG PO PRN 05/04/18 Hydrocortisone Acetate (HYDROCORTISONE ACETATE) 25 Mg Supp.rect, 25 MG RC HS Y for prn, SUPP.RECT 05/04/18 Cholecalciferol (Vitamin D3) (VITAMIN D3) 1,000 Unit Tablet, 1000 UNIT PO DAILY , TAB 05/04/18 Estrogens, Conjugated (Premarin) 0.625 Mg/Gram Cream.appl, 1 ALYSIA TOP MONTOYA TU FR 05/04/18 Nystatin 100,000 Unit/Gm Top Powder (NYSTATIN 100,000 UNIT/GM TOP POWDER) 15 Gm Powder, 15 GM TP PRN, TUBE 05/04/18 Diclofenac Sodium 1% Gel (VOLTAREN 1% GEL) 100 Gm Gel..gram., 4 G TOP QID 05/04/18 Clonidine Hcl (CLONIDINE HCL) 0.1 Mg Tablet, 0.2 MG PO BID, TAB 05/04/18 Acetaminophen 500 Mg Tab (ACETAMINOPHEN EXTRA STRENGTH) 500 Mg Tablet, 1000 MG PO TID, TAB 05/04/18 Metoprolol Succinate (METOPROLOL SUCCINATE) 50 Mg Tab.er.24h, 1 TAB PO QDAY, TAB 05/03/18 Calcium Polycarbophil (FIBER LAX) 625 Mg Tablet, 2 TAB PO DAILY 05/03/18 Citalopram Hydrobromide (CITALOPRAM HBR) 20 Mg Tablet, 10 MG PO QDAY, #5 TAB 05/03/18 Lisinopril (LISINOPRIL) 40 Mg Tablet, 20 MG PO QHS, TAB 10/03/17 Discontinued Reported Medications Clonidine (CLONIDINE 0.2 MG/DAY) 1 Each Patch.tdwk, 1 EACH TD Q7DAY, PATCH.WK 05/03/18 Calcium Carb/Vit D3/Minerals (CALCIUM +D & MINERALS CHEW TAB) 1 Each Tab.chew, 1 EACH PO DAILY, TAB.CHEW 08/17/15 Gabapentin (NEURONTIN) 400 Mg Capsule, 800 MG PO HS, CAPSULE 11/01/17 Lactobacillus Combination No.4 (PROBIOTIC) 1 Each Capsule, 1 EACH PO QDAY, CAPSULE 12/16/14 Discontinued Scripts Calcium Carbonate (CALCIUM ANTACID) 200 Mg Tab.chew, 500 MG PO PRN Y for HEARTBURN, #60 TAB.CHEW Prov:KELLY PEREZ MD 10/11/17 Acetaminophen (MAPAP) 325 Mg Tablet, 650 MG PO Q6H Y for PAIN OR FEVER 100 OR GREATER, #30 TAB Prov:KELLY PEREZ MD 10/11/17 Sulfamethoxazole/Trimet 800-160 Mg Tab (BACTRIM DS TABLET) 1 Each Tablet, 1 TAB PO Q12H for 3 Days, #6 TAB Prov:DELON MORRIS MD 01/12/18 Gabapentin (NEURONTIN) 800 Mg Tab, 800 MG PO HS, #60 TAB Prov:KELLY PEREZ MD 11/01/17 Pantoprazole Sodium (PANTOPRAZOLE SODIUM) 20 Mg Tablet.dr, 20 MG PO QDAY, #30 TAB Prov:KELLY PEREZ MD 10/11/17 Metoprolol Succinate (METOPROLOL SUCCINATE) 50 Mg Tab.er.24h, 100 MG PO BID, # 120 TAB Prov:KELLY PEREZ MD 10/11/17 Albuterol Sulfate 90 Mcg/Act (PROAIR HFA 90 MCG/ACT) 8.5 Gm Hfa.aer.ad, 1-2 PUFF IH 3-4XD, #1 INHALER 11 Refills Prov:ИРИНА SENIOR MD 06/20/17 Clonidine Hcl (CLONIDINE HCL) 0.1 Mg Tablet, 0.1 MG PO BID for Blood Pressure, # 60 TAB 11 Refills Prov:ИРИНА SENIOR MD 06/20/17 Citalopram Hydrobromide (CITALOPRAM HBR) 20 Mg Tablet, 1 TAB PO QDAY, #30 TAB 11 Refills Prov:ИРИНА SENIOR MD 06/20/17 Allergies: Coded Allergies: Penicillins (Verified Allergy, Severe, ANAPHYLAXIS, 05/04/18) 05/04/18: Pt reported her "throat closing" and itching. She was advised by her MD to never take a penicillin. Per pt report and MD confirmation. Uncoded Allergies: AVOIDS ASPIRIN (Adverse Reaction, Mild, DUE TO RECENT BLEEDING, 02/12/14) Family History: FH: colon cancer MOTHER, Onset: FH: coronary artery disease FATHER BROTHER OR SISTER BROTHER OR SISTER FHx: diabetes mellitus BROTHER OR SISTER BROTHER OR SISTER Review of Systems All Systems Reviewed/Normal: Yes, Except as Noted Neurological: Weakness Gastrointestinal: Melena Exam Vital Signs Vital Signs Date Time Temp Pulse Resp B/P (MAP) Pulse Ox O2 Delivery O2 Flow Rate FiO2 05/07/18 07:55 98.2 81 16 135/69 (91) 95 Nasal Cannula 1.0 General Appearance: Alert, Awake, No Acute Distress, Afebrile GI: Abd Soft and Non-Tender Extremities: Warm, Perfused Medical Decision Making Data Points Result Diagram: 05/07/18 0511 05/07/18 0511 Assessment and Plan Problems: (1) Melena Assessment & Plan: 05/07/18: We will proceed with EGD and colonoscopy. Patient is eating this morning and so this afternoon won't really be possible to get her bowel prep completed in time and nothing by mouth for the procedures. Will change her to clear diet and will start the prep this afternoon and will we'll plan on EGD and colonoscopy tomorrow. I have explained this plan to the patient and she indicates her understanding and agreement with this plan. H. pylori by serology is positive however these can remain positive for quite some time even after treatment. We'll biopsy her stomach during her EGD for PyloriTek to see if she is currently infected with H. pylori. We'll hold off on antibiotics until I can confirm that she has a current H. pylori infection. (2) Anemia Status: Acute Assessment & Plan: Etiology unclear. No evidence of blood loss. Will stop IV Bactrim. Recheck Hgb at 1300 with B12/Folate/Iron studies/LDH/Haptoglobin/ reticulocyte count. Will check for occult blood in stools. She is asymptomatic. (3) History of gastritis Status: Chronic (4) History of Helicobacter pylori infection Status: Chronic (5) History of colitis Status: Chronic Condition Stable Time Spent: < 30 min Venous Thromboembolism Antithrombotics Is Pt On Any Antithrombotics?: No Problem Qualifiers (1) Anemia: Anemia type: unspecified type Qualified Codes: D64.9 - Anemia, unspecified FEROZ NOVOA MD May 07, 2018 08:52
[2018-05-07] MEDS: NITROFURANTOIN MONO 100 MG PO SCH ×2 (08:58→20:44)
[2018-05-07] MEDS: METOPROLOL SUCC XL 50 MG TABCR 50 MG TAB.ER.24H PO SCH (08:58)
--- NOTE | 2018-05-07 10:09 | Hospitalist Progress Note ---
Subjective Progress Notes Subjective She has no complaints this morning. She had no acute events overnight. Blood in stools seemed to decrease after starting Pantoprazole and Carafate yesterday. Patient Complains of: Cardiovascular: No: Chest Pain Respiratory: No: Shortness of Breath Physical Exam Vital Signs Date Time Temp Pulse Resp B/P (MAP) Pulse Ox O2 Delivery O2 Flow Rate FiO2 05/07/18 07:55 98.2 81 16 135/69 (91) 95 Nasal Cannula 1.0 Intake and Output 05/08/18 07:00 Intake Total 240 ml Balance 240 ml Intake Oral 240 ml General Appearance: Alert, Awake, No Acute Distress, Afebrile Neuro: No Gross deficits Cardiovascular: Regular Rate and Rhythm Respiratory: No Respiratory Distress, Clear to Auscultation GI: Soft and Non-Tender Psych: Appropriate Mood & Affect Result Diagram: 05/07/1851005/07/18510 Assessment and Plan Problems: (1) Hyponatremia Status: Acute Assessment & Plan: Her levels have been improving with IV fluids and stopping her lisinopril. Continue to follow. Will saline lock. (2) Anemia Status: Acute Assessment & Plan: Etiology unclear. No evidence of blood loss. Will stop IV Bactrim. Recheck Hgb at 1300 today. She was positive for occult blood in stools. Dr. Bledsoe consulted for patient. She is asymptomatic. (3) Hyperkalemia Status: Acute Assessment & Plan: Improved/resolved after stopping lisinopril. (4) Urinary tract infection Status: Acute Assessment & Plan: She did have large leukocytes on her urinalysis. Culture is growing fairly resistant E. coli. She received IV Bactrim on 05/05. She is afebrile and has a normal WBC. Will switch to oral nitrofurantoin because stopping Bactrim related to the anemia. (5) ARF (acute renal failure) Status: Acute Assessment & Plan: Improved with IV fluids. Creatinine is now normal at 0.7. (6) Hypothyroid Status: Chronic Assessment & Plan: She is on chronic treatment with Synthroid. (7) Hypertension Status: Chronic Assessment & Plan: She had been on chronic treatment with lisinopril, clonidine , and metoprolol. Lisinopril and clonidine have been stopped. Metoprolol resumed. Exam Sepsis Risk: No Definite Risk Problem Qualifiers (1) Anemia: Anemia type: unspecified type Qualified Codes: D64.9 - Anemia, unspecified (2) Urinary tract infection: Urinary tract infection type: site unspecified Hematuria presence: without hematuria Qualified Codes: N39.0 - Urinary tract infection, site not specified VITALIY CANO ACCOUNT ANALYST May 07, 2018 10:09
[2018-05-07 12:14] VITALS: BP 114/82
[2018-05-07 13:05] LABS: PLATELET COUNT, AUTOMATED 256 K/uL (150-450)
[2018-05-07] MEDS ORDERED: PEG (High)/E-LYTE SOLN 4000 ML PO ONE (15:00)
[2018-05-07 15:01] VITALS: BP 132/62
--- NOTE | 2018-05-07 16:00 | Medical Nutrition Therapy ---
Nutrition Anthropometrics Height (Inches): 61.00 Height (Calculated Centimeters: 154.065361 Weight (Pounds): 191 Weight (Calculated Kilograms): 86.636 Manjinder Nutrition Score: Probably Inadequate Manjinder Nutrition Risk Score: 13 Dietary Referral Nutrition Risk Factors: Nutrition Risk Comment: Physical Findings Physical Appearance: Obese BMI 30-39 Skin Appearance Skin Appearance: Edema Edema Location Modifier: Both Edema Location: Leg Type of Edema: Degree of Edema: 1+ Gastrointestinal Symptoms GI Symtoms: Blood in Stool, Change in Bowel Pattern Tube Present: Bowel Sounds: Recent Bowel Pattern: Stool Characteristics: Nutritional Diagnosis Nutritional Risk Acuity 1: Acute/ES Renal Nutritional Risk Acuity 3: Nutrit Anemia Nutritional Risk Acuity 4: Good Appetite Past Medical History: T2DM,CAD,CABG, [place], GERD, diverticulosis, UTI, ARF, hyponatremia, hypokalemia, HTN, herpes zosters Nutritional Acuity: 1-High Nutrition Problem/Etiology/Sym: Altered nutrition lab values related to physiological causes as evidence by improper kidney function with altered Na (130), K+ (5.6) and dehydration. Energy Requirement: 1346 ([place] Adj BMI >27.5) Protein Requirement: 69 (.8g/kg) Fluid Requirement: 2175 (25ml/kg >75yrs ) Diet Type: Diet as Tolerated NIKHIL/REG Nutrition Intervention: Encourage intake Food Likes: likes black tea with honey, premade, with straw Nutrition Monitoring & Eval Nutrition Goals: Eat 50-100% Meal RD Patient Assessment Time: [address] Assessment Type: RD Re-Assessment Patient Nutrition Acuity: 1-High Follow Up Date: May 10, 2018 Nutritional Comment: 05/04 Pt admitted for UTI. Pt came in with nausea, weakness, fatigue and mild abdominal pain. Pt states that it hurts/rayo to urinate. Pt does have ARF. Creatinine continues to increase today it is (1.1). BUN (71) and K+ (5.6). Pt is on regular diet with 60% oral intake. Pt has low H/H, alb (2.5) and Na ranging from (123-130). Pt is on regular diet with 60% oral intake. Pt may benefit from ADA diet based on her hx T2DM. Will continue to monitor pt progress, labs, and encourage intake. -MT 05/07 Pt continues on regular diet consuming 75% to 100% of her meals. Pt has low H/H hgb (8.3) and hct (24.2) and low alb (2.7). Pt Na has slowly increased from (123) to (136). Pt creatinine is now WNR (.07). Pt is newly diagnosed with anemia. pt has blood in stool. Per doctor note, unsure etiology. no evidence of blood loss. Will stop IV Bactrim. Recheck Hgb at 1300 with B12/Folate/Iron studies/LDH/Haptoglobin/reticulocyte count. Pt urine culture had resistant e.coli. Will continue to monitor pt progress, labs, and encourage intake. -YULIA COLBERT May 07, 2018 09:05
[2018-05-07 18:48] VITALS: BP 132/66
[2018-05-07] MEDS: PRIMIDONE 50 MG TAB PO SCH (20:44)
[2018-05-08] VITALS (15 sets, daily range): BP systolic 92–141; BP diastolic 40–79
[2018-05-08] MEDS: HYPROMELLOSE 0.4% LUB 15ML BTL OU PRN (04:42)
[2018-05-08] MEDS: LEVOTHYROXINE SOD 0.05 MG TAB PO SCH (05:22)
[2018-05-08] MEDS: PANTOPRAZOLE SOD 40 MG IV VIAL IVP SCH ×2 (05:23→16:23)
[2018-05-08 05:45] LABS: PLATELET COUNT, AUTOMATED 216 K/uL (150-450)
[2018-05-08] MEDS: SUCRALFATE 1 GM TAB PO SCH ×4 (06:01→21:16)
[2018-05-08] MEDS ORDERED: LIDOCAINE MPF 1% 5 ML VIAL ONE ×2 (06:54→16:34)
[2018-05-08] MEDS ORDERED: DEXAMETHASONE SOD PHOS 10MG/ML ONE (06:54)
[2018-05-08] MEDS ORDERED: ROCURONIUM BROM 10 MG/ML 10 ML ONE (06:54)
[2018-05-08] MEDS ORDERED: ONDANSETRON 4 MG/2 ML VIAL ONE (06:54)
[2018-05-08] MEDS ORDERED: PROPOFOL EMUL(*) 10MG/ML 20 ML 40 ML ONE (06:54)
[2018-05-08] MEDS ORDERED: fentaNYL CITR 100 MCG/2 ML AMP ONE (06:54)
[2018-05-08] MEDS ORDERED: KETAMINE HCL 500 MG/10 ML VIAL ONE ×2 (07:55→16:35)
[2018-05-08] MEDS ORDERED: BISACODYL 5 MG TABEC PO ONE (08:05)
--- NOTE | 2018-05-08 08:09 | General Surgery Progress Note ---
Subjective Progress Notes Subjective No complaints. No blood for 2 days with 3 nonbloody BMs yesterday per RN. Pt refused bowel prep yesterday because she didn't want to poop all day. Physical Exam Vital Signs Date Time Temp Pulse Resp B/P (MAP) Pulse Ox O2 Delivery O2 Flow Rate FiO2 05/08/18 07:30 98.7 87 16 136/55 (82) 96 Nasal Cannula 1.0 Intake and Output 05/09/18 07:00 # Voids 1 General Appearance: Alert, Awake, No Acute Distress, Afebrile GI: Soft and Non-Tender Extremities: Warm, Perfused Result Diagram: 05/08/1852305/08/18523 Assessment and Plan Problems: (1) Melena Assessment & Plan: 05/07/18: We will proceed with EGD and colonoscopy. Patient is eating this morning and so this afternoon won't really be possible to get her bowel prep completed in time and nothing by mouth for the procedures. Will change her to clear diet and will start the prep this afternoon and will we'll plan on EGD and colonoscopy tomorrow. I have explained this plan to the patient and she indicates her understanding and agreement with this plan. H. pylori by serology is positive however these can remain positive for quite some time even after treatment. We'll biopsy her stomach during her EGD for PyloriTek to see if she is currently infected with H. pylori. We'll hold off on antibiotics until I can confirm that she has a current H. pylori infection. 05/08/18: Pt refused golytely yesterday so no bowel prep has been completed. She is now agreeing to bowel prep. Will give her bisacodyl tablets and mag citrate with plans for EGD and colonoscopy this evening. Pt agreeable with this plan. (2) Anemia Status: Acute Assessment & Plan: 1 episode of melena. May be due to PUD but also with h/o colitis. Will plan on EGD/colonoscopy. (3) History of gastritis Status: Chronic (4) History of Helicobacter pylori infection Status: Chronic (5) History of colitis Status: Chronic Condition Stable. Time Spent: < 30 min Exam Sepsis Risk: No Definite Risk Problem Qualifiers (1) Anemia: Anemia type: unspecified type Qualified Codes: D64.9 - Anemia, unspecified FEROZ NOVOA MD May 08, 2018 08:09
[2018-05-08] MEDS: NITROFURANTOIN MONO 100 MG PO SCH ×2 (08:17→21:16)
[2018-05-08] MEDS: METOPROLOL SUCC XL 50 MG TABCR 50 MG TAB.ER.24H PO SCH (08:17)
--- NOTE | 2018-05-08 09:04 | Hospitalist Progress Note ---
Subjective Progress Notes Subjective She has no complaints this morning. She states she didn't like the bowel prep yesterday. She states she couldn't drink that and didn't want to poop all day. Patient Complains of: Cardiovascular: No: Chest Pain Respiratory: No: Shortness of Breath Physical Exam Vital Signs Date Time Temp Pulse Resp B/P (MAP) Pulse Ox O2 Delivery O2 Flow Rate FiO2 05/08/18 07:30 98.7 87 16 136/55 (82) 96 Nasal Cannula 1.0 Intake and Output 05/09/18 07:00 # Voids 1 General Appearance: Alert, Awake, No Acute Distress, Afebrile Neuro: No Gross deficits Cardiovascular: Regular Rate and Rhythm Respiratory: No Respiratory Distress, Clear to Auscultation Psych: Alert & Oriented X3, Appropriate Mood & Affect Result Diagram: 05/08/1852305/08/18523 Assessment and Plan Problems: (1) Melena Assessment & Plan: She has had no further episodes of blood in stools since Monday. She had 3 bowel movements yesterday. She will be proceeding with EGD and Colonoscopy this evening with Dr. Bledsoe. (2) Anemia Status: Acute Assessment & Plan: Will stop IV Bactrim. She was positive for occult blood in stools. Dr. Bledsoe consulted for patient. She is asymptomatic. See Above. (3) Hyponatremia Status: Acute Assessment & Plan: Her levels have improved with IV fluids and stopping her lisinopril. She is now saline locked. Continue to follow. (4) Hyperkalemia Status: Acute Assessment & Plan: Improved/resolved after stopping lisinopril. (5) Urinary tract infection Status: Acute Assessment & Plan: She did have large leukocytes on her urinalysis. Culture is growing fairly resistant E. coli. She received IV Bactrim on 05/05. She is afebrile and has a normal WBC. Will switch to oral nitrofurantoin because stopping Bactrim related to the anemia. (6) ARF (acute renal failure) Status: Acute Assessment & Plan: Improved with IV fluids. Creatinine is now normal. (7) Hypothyroid Status: Chronic Assessment & Plan: She is on chronic treatment with Synthroid. (8) Hypertension Status: Chronic Assessment & Plan: She had been on chronic treatment with lisinopril, clonidine , and metoprolol. Lisinopril and clonidine have been stopped. Metoprolol resumed. Exam Sepsis Risk: No Definite Risk Problem Qualifiers (1) Anemia: Anemia type: unspecified type Qualified Codes: D64.9 - Anemia, unspecified (2) Urinary tract infection: Urinary tract infection type: site unspecified Hematuria presence: without hematuria Qualified Codes: N39.0 - Urinary tract infection, site not specified VITALIY CNAO May 08, 2018 09:04
[2018-05-08] MEDS ORDERED: MAGNESIUM CITRATE 300 ML BTL PO ONE (10:00)
[2018-05-08] MEDS ORDERED: NORMOSOL R SOLN(*) 1000 ML BAG 1,000 ML IV ONE (15:54)
[2018-05-08] MEDS ORDERED: PROPOFOL EMUL(*) 10MG/ML 20 ML 20 ML ONE (16:34)
[2018-05-08] MEDS ORDERED: NS 0.9% 20 ML SDV 20 ML ONE (16:37)
[2018-05-08] MEDS: PRIMIDONE 50 MG TAB PO SCH (21:17)
[2018-05-09 05:09] VITALS: BP 152/67
[2018-05-09] MEDS: LEVOTHYROXINE SOD 0.05 MG TAB PO SCH (05:22)
[2018-05-09] MEDS: PANTOPRAZOLE SOD 40 MG IV VIAL IVP SCH ×2 (05:22→16:25)
[2018-05-09] MEDS: SUCRALFATE 1 GM TAB PO SCH ×4 (05:30→20:35)
--- NOTE | 2018-05-09 07:22 | General Surgery Progress Note ---
Subjective Progress Notes Subjective No complaints. Physical Exam Vital Signs Date Time Temp Pulse Resp B/P (MAP) Pulse Ox O2 Delivery O2 Flow Rate FiO2 05/09/18 05:09 98.8 83 16 152/67 (95) 96 Nasal Cannula 2.0 General Appearance: Alert, Awake, No Acute Distress, Afebrile GI: Soft and Non-Tender Result Diagram: 05/09/18 0512 05/08/18 0524 Assessment and Plan Problems: (1) Melena Assessment & Plan: 05/07/18: We will proceed with EGD and colonoscopy. Patient is eating this morning and so this afternoon won't really be possible to get her bowel prep completed in time and nothing by mouth for the procedures. Will change her to clear diet and will start the prep this afternoon and will we'll plan on EGD and colonoscopy tomorrow. I have explained this plan to the patient and she indicates her understanding and agreement with this plan. H. pylori by serology is positive however these can remain positive for quite some time even after treatment. We'll biopsy her stomach during her EGD for PyloriTek to see if she is currently infected with H. pylori. We'll hold off on antibiotics until I can confirm that she has a current H. pylori infection. 05/08/18: Pt refused golytely yesterday so no bowel prep has been completed. She is now agreeing to bowel prep. Will give her bisacodyl tablets and mag citrate with plans for EGD and colonoscopy this evening. Pt agreeable with this plan. 05/09/18: Stable, H/H down some but no further melena. EGD completed, duodenitis and small superficial gastric ulcers seen but no active bleeding and no old blood were seen. Colonoscopy not performed because patient refused prep. If melena resumes or H/H continues to decline then she may require a colonoscopy if she'll consent for this. O/W, continue current ulcer therapy. H. pylori test was negative endoscopically so no need to treat for this although H. pylori ab positive but this can stay positive for a long time after treatment for H. pylori. (2) Anemia Status: Acute Assessment & Plan: 1 episode of melena. May be due to PUD but also with h/o colitis. Will plan on EGD/colonoscopy. (3) History of gastritis Status: Chronic (4) History of Helicobacter pylori infection Status: Chronic (5) History of colitis Status: Chronic Condition Stable. Time Spent: < 30 min Exam Sepsis Risk: No Definite Risk Problem Qualifiers (1) Anemia: Anemia type: unspecified type Qualified Codes: D64.9 - Anemia, unspecified FEROZ NOVOA MD May 09, 2018 07:22
[2018-05-09 08:04] VITALS: BP 141/64
[2018-05-09] MEDS ORDERED: FUROSEMIDE 20 MG/2 ML VIAL IVP ONE (08:35)
[2018-05-09] MEDS ORDERED: NS(*) 0.9% 1000 ML BAG 1,000 ML IV PRN (08:35)
[2018-05-09] MEDS: NS(*) 0.9% 1000 ML BAG 1,000 ML IV SCH (09:11)
[2018-05-09] MEDS: METOPROLOL SUCC XL 50 MG TABCR 50 MG TAB.ER.24H PO SCH (09:11)
--- NOTE | 2018-05-09 10:22 | Hospitalist Progress Note ---
Subjective Progress Notes Subjective She denies cp/sob. No concerns from staff. No more melanotic/maroon stools. Physical Exam Vital Signs Date Time Temp Pulse Resp B/P (MAP) Pulse Ox O2 Delivery O2 Flow Rate FiO2 05/09/18 09:14 95 Nasal Cannula 2.0 05/09/18 08:04 99.4 86 20 141/64 (89) Intake and Output 05/10/18 07:00 Intake Total 480 ml Balance 480 ml Intake Oral 480 ml # Voids 1 General Appearance: Alert, Awake, No Acute Distress GI: Soft and Non-Tender Result Diagram: 05/09/18 0505/08/18 0524 Assessment and Plan Problems: (1) Melena Assessment & Plan: She has had no further episodes of blood in stools since Monday. EGD was c/w non-bleeding superficial gastric ulcers and and duodenitis. Will continue PPI/Carafate. Hgb dropped today. Will recheck this afternoon. (2) Anemia Status: Acute Assessment & Plan: Secondary to GI bleed. She was positive for occult blood in stools. She is asymptomatic. See Above. (3) Hyponatremia Status: Resolved Assessment & Plan: Her levels have improved with IV fluids and stopping her lisinopril. She is now saline locked. Continue to follow. (4) Hyperkalemia Status: Acute Assessment & Plan: Improved/resolved after stopping lisinopril. (5) Urinary tract infection Status: Acute Assessment & Plan: She did have large leukocytes on her urinalysis. Culture is growing fairly resistant E. coli. She received IV Bactrim on 05/05. She is afebrile and has a normal WBC. Switched to oral nitrofurantoin because stopping Bactrim related to the anemia. Will stop because she has had a 3 day course. (6) ARF (acute renal failure) Status: Resolved Assessment & Plan: Improved with IV fluids. Creatinine is now normal. (7) Hypothyroid Status: Chronic Assessment & Plan: She is on chronic treatment with Synthroid. (8) Hypertension Status: Chronic Assessment & Plan: She had been on chronic treatment with lisinopril, clonidine , and metoprolol. Lisinopril and clonidine have been stopped. Metoprolol resumed. Exam Sepsis Risk: No Definite Risk Problem Qualifiers (1) Anemia: Anemia type: unspecified type Qualified Codes: D64.9 - Anemia, unspecified (2) Urinary tract infection: Urinary tract infection type: site unspecified Hematuria presence: without hematuria Qualified Codes: N39.0 - Urinary tract infection, site not specified HARIKA MARTINEZ MD May 09, 2018 10:22
[2018-05-09 10:51] VITALS: BP 123/67
[2018-05-09 13:48] LABS: PLATELET COUNT, AUTOMATED 257 K/uL (150-450)
[2018-05-09 14:55] VITALS: BP 124/77
[2018-05-09 18:54] VITALS: BP 103/47
[2018-05-09 20:25] VITALS: BP 127/55
[2018-05-09] MEDS: PRIMIDONE 50 MG TAB PO SCH (20:35)
[2018-05-10] VITALS (10 sets, daily range): BP systolic 121–151; BP diastolic 50–82
[2018-05-10] MEDS: PANTOPRAZOLE SOD 40 MG IV VIAL IVP SCH ×2 (05:01→16:46)
[2018-05-10] MEDS: LEVOTHYROXINE SOD 0.05 MG TAB PO SCH (05:17)
[2018-05-10] MEDS: SUCRALFATE 1 GM TAB PO SCH ×4 (05:43→20:49)
[2018-05-10 06:58] LABS: PLATELET COUNT, AUTOMATED 228 K/uL (150-450)
[2018-05-10] MEDS: METOPROLOL SUCC XL 50 MG TABCR 50 MG TAB.ER.24H PO SCH (08:30)
[2018-05-10] MEDS: HYPROMELLOSE 0.4% LUB 15ML BTL OU PRN (08:33)
[2018-05-10] MEDS ORDERED: ACETAMINOPHEN 325 MG TAB PO PRN (09:10)
[2018-05-10] MEDS ORDERED: NS(*) 0.9% 500 ML BAG 500 ML IV PRN (09:20)
--- NOTE | 2018-05-10 09:55 | Medical Nutrition Therapy ---
Nutrition Anthropometrics Height (Inches): 61.00 Height (Calculated Centimeters: 154.098812 Weight (Pounds): 191 Weight (Calculated Kilograms): 86.636 Manjinder Nutrition Score: Probably Inadequate Manjinder Nutrition Risk Score: 13 Dietary Referral Nutrition Risk Factors: Nutrition Risk Comment: Physical Findings Physical Appearance: Obese BMI 30-39 Skin Appearance Skin Appearance: Edema Edema Location Modifier: Both Edema Location: Leg Type of Edema: Degree of Edema: 1+ Gastrointestinal Symptoms GI Symtoms: Change in Bowel Pattern Tube Present: Bowel Sounds: Recent Bowel Pattern: Stool Characteristics: Nutritional Diagnosis Nutritional Risk Acuity 3: Nutrit Anemia, Gastritis/Gastroenteritis Nutritional Risk Acuity 4: Good Appetite Past Medical History: T2DM,CAD,CABG, [place], GERD, diverticulosis, UTI, ARF, hyponatremia, hypokalemia, HTN, herpes zosters, melena, GI bleed, Nutritional Acuity: 3-Mild Nutrition Problem/Etiology/Sym: Altered nutrition lab values related to physiological causes as evidence by low Na (132) Altered nutrition lab values related to GI bleed as evidence by low H/H and blood in stool. Energy Requirement: 1346 ([place] Adj BMI >27.5) Protein Requirement: 69 (.8g/kg) Fluid Requirement: 2175 (25ml/kg >75yrs ) Diet Type: Diet as Tolerated NIKHIL/REG Nutrition Intervention: Encourage intake Food Likes: likes black tea with honey, premade, with straw Diet Comment To [facility]: OFFER NUTRITION SUPPLEMENT Nutrition Monitoring & Eval RD Patient Assessment Time: [address] Assessment Type: RD Re-Assessment Patient Nutrition Acuity: 1-High Follow Up Date: May 14, 2018 Nutritional Comment: 05/04 Pt admitted for UTI. Pt came in with nausea, weakness, fatigue and mild abdominal pain. Pt states that it hurts/rayo to urinate. Pt does have ARF. Creatinine continues to increase today it is (1.1). BUN (71) and K+ (5.6). Pt is on regular diet with 60% oral intake. Pt has low H/H, alb (2.5) and Na ranging from (123-130). Pt is on regular diet with 60% oral intake. Pt may benefit from ADA diet based on her hx T2DM. Will continue to monitor pt progress, labs, and encourage intake. -MT 05/07 Pt continues on regular diet consuming 75% to 100% of her meals. Pt has low H/H hgb (8.3) and hct (24.2) and low alb (2.7). Pt Na has slowly increased from (123) to (136). Pt creatinine is now WNR (.07). Pt is newly diagnosed with anemia. pt has blood in stool. Per doctor note, unsure etiology. no evidence of blood loss. Will stop IV Bactrim. Recheck Hgb at 1300 with B12/Folate/Iron studies/LDH/Haptoglobin/reticulocyte count. Pt urine culture had resistant e.coli. Will continue to monitor pt progress, labs, and encourage intake. -PR 05/10 Pt continues on regular diet with 75% to 100% oral intake. Offer nutrition supplement to ensure pt meets nutrient needs. ARF has been resolved, creatinine is WNR. GI bleed has been resolved, pt no longer has blood in stools. Pt had EGD done, per doctor note EGD was c/w non-bleeding superficial gastric ulcers and and duodenitis. Pt continue to have low H/H hgb (7.3) and hct (21.9). Pt has low Na (132) and RBC (2.32). Will continue to monitor pt progres, labss, offer nutrition supplement will help with increase RBC and H/H, and encourage intake. -YULAI COLBERT May 10, 2018 09:37
--- NOTE | 2018-05-10 10:28 | Hospitalist Progress Note ---
Subjective Progress Notes Subjective She has no complaints this morning. She had no acute events overnight. Patient Complains of: Cardiovascular: No: Chest Pain Respiratory: No: Shortness of Breath Gastrointestinal: No Nausea, No Vomiting Physical Exam Vital Signs Date Time Temp Pulse Resp B/P (MAP) Pulse Ox O2 Delivery O2 Flow Rate FiO2 05/10/18 07:17 94 Nasal Cannula 2.0 05/10/18 07:02 98.7 82 16 121/51 (74) Intake and Output 05/11/18 01:00 Intake Total 240 ml Balance 240 ml Intake Oral 240 ml # Voids 2 General Appearance: Alert, Awake, No Acute Distress, Afebrile Cardiovascular: Regular Rate and Rhythm Respiratory: No Respiratory Distress, Clear to Auscultation GI: Soft and Non-Tender Psych: Alert & Oriented X3, Appropriate Mood & Affect Result Diagram: 05/10/1863205/10/18632 Assessment and Plan Problems: (1) Melena Assessment & Plan: She has had no further episodes of blood in stools since Monday. EGD was c/w non-bleeding superficial gastric ulcers and and duodenitis. Will continue PPI/Carafate. Hgb has continued to drop, today is 7.3. She will receive 2 units packed red cells today. (2) Anemia Status: Acute Assessment & Plan: Secondary to GI bleed. She was positive for occult blood in stools. She is asymptomatic. See Above. (3) Hyponatremia Status: Resolved Assessment & Plan: Her levels have improved with IV fluids and stopping her lisinopril. She is now saline locked. Continue to follow. (4) Hyperkalemia Status: Acute Assessment & Plan: Improved/resolved after stopping lisinopril. (5) Urinary tract infection Status: Acute Assessment & Plan: She did have large leukocytes on her urinalysis. Culture is growing fairly resistant E. coli. She received IV Bactrim on 05/05. She is afebrile and has a normal WBC. Switched to oral nitrofurantoin because stopping Bactrim related to the anemia. Will stop because she has had a 3 day course. (6) ARF (acute renal failure) Status: Resolved Assessment & Plan: Improved with IV fluids. Creatinine is now normal. (7) Hypothyroid Status: Chronic Assessment & Plan: She is on chronic treatment with Synthroid. (8) Hypertension Status: Chronic Assessment & Plan: She had been on chronic treatment with lisinopril, clonidine , and metoprolol. Lisinopril and clonidine have been stopped. Metoprolol resumed. Exam Sepsis Risk: No Definite Risk Problem Qualifiers (1) Anemia: Anemia type: unspecified type Qualified Codes: D64.9 - Anemia, unspecified (2) Urinary tract infection: Urinary tract infection type: site unspecified Hematuria presence: without hematuria Qualified Codes: N39.0 - Urinary tract infection, site not specified VITALIY CANO YARROW GATHERER May 10, 2018 10:28
--- NOTE | 2018-05-10 16:04 | General Surgery Progress Note ---
Subjective Progress Notes Subjective No complaints. No BMs for a couple of days. Physical Exam Vital Signs Date Time Temp Pulse Resp B/P (MAP) Pulse Ox O2 Delivery O2 Flow Rate FiO2 05/10/18 14:59 99.4 80 16 147/60 05/10/18 11:18 96 Nasal Cannula 2.0 Intake and Output 05/11/18 07:00 Intake Total 690 ml Balance 690 ml Intake Oral 440 ml Blood Product 250 ml # Voids 1 General Appearance: Alert, Awake, No Acute Distress, Afebrile GI: Soft and Non-Tender Extremities: Warm, Perfused Result Diagram: 05/10/1863205/10/18632 Assessment and Plan Problems: (1) Melena Assessment & Plan: 05/07/18: We will proceed with EGD and colonoscopy. Patient is eating this morning and so this afternoon won't really be possible to get her bowel prep completed in time and nothing by mouth for the procedures. Will change her to clear diet and will start the prep this afternoon and will we'll plan on EGD and colonoscopy tomorrow. I have explained this plan to the patient and she indicates her understanding and agreement with this plan. H. pylori by serology is positive however these can remain positive for quite some time even after treatment. We'll biopsy her stomach during her EGD for PyloriTek to see if she is currently infected with H. pylori. We'll hold off on antibiotics until I can confirm that she has a current H. pylori infection. 05/08/18: Pt refused golytely yesterday so no bowel prep has been completed. She is now agreeing to bowel prep. Will give her bisacodyl tablets and mag citrate with plans for EGD and colonoscopy this evening. Pt agreeable with this plan. 05/09/18: Stable, H/H down some but no further melena. EGD completed, duodenitis and small superficial gastric ulcers seen but no active bleeding and no old blood were seen. Colonoscopy not performed because patient refused prep. If melena resumes or H/H continues to decline then she may require a colonoscopy if she'll consent for this. O/W, continue current ulcer therapy. H. pylori test was negative endoscopically so no need to treat for this although H. pylori ab positive but this can stay positive for a long time after treatment for H. pylori. 05/10/18: Stable. H/H down some, getting 2 Units of pRBC. No other evidence of ongoing GI bleeding. No melena (or any BMs for that matter). Will see how she responds to blood transfusion and if H/H stable afterward or if she has further melenotic stools. Will need to pursue colonoscopy if H/H drops or she has further melena. Recommend continued treatment for gastritis, superficial ulcers. (2) Anemia Status: Acute Assessment & Plan: 1 episode of melena. May be due to PUD but also with h/o colitis. Will plan on EGD/colonoscopy. (3) History of gastritis Status: Chronic (4) History of Helicobacter pylori infection Status: Chronic (5) History of colitis Status: Chronic Condition Stable Time Spent: < 30 min Exam Sepsis Risk: No Definite Risk Problem Qualifiers (1) Anemia: Anemia type: unspecified type Qualified Codes: D64.9 - Anemia, unspecified FREOZ NOVOA MD May 10, 2018 16:04
[2018-05-10] MEDS: PRIMIDONE 50 MG TAB PO SCH (20:50)
[2018-05-11 02:38] VITALS: BP 124/55
[2018-05-11] MEDS: PANTOPRAZOLE SOD 40 MG IV VIAL IVP SCH (05:16)
[2018-05-11] MEDS: LEVOTHYROXINE SOD 0.05 MG TAB PO SCH (05:44)
[2018-05-11] MEDS: HYPROMELLOSE 0.4% LUB 15ML BTL OU PRN (05:51)
[2018-05-11 06:13] LABS: PLATELET COUNT, AUTOMATED 154 K/uL (150-450)
[2018-05-11] MEDS: SUCRALFATE 1 GM TAB PO SCH ×2 (06:31→10:27)
--- NOTE | 2018-05-11 08:01 | General Surgery Progress Note ---
Subjective Progress Notes Subjective No complaints. Physical Exam Vital Signs Date Time Temp Pulse Resp B/P (MAP) Pulse Ox O2 Delivery O2 Flow Rate FiO2 05/11/18 02:38 98.8 63 20 124/55 (78) 97 Nasal Cannula 1.0 General Appearance: Alert, Awake, No Acute Distress, Afebrile GI: Soft and Non-Tender Extremities: Warm, Perfused Result Diagram: 05/11/18 0530 05/11/18 0530 Assessment and Plan Problems: (1) Melena Assessment & Plan: 05/07/18: We will proceed with EGD and colonoscopy. Patient is eating this morning and so this afternoon won't really be possible to get her bowel prep completed in time and nothing by mouth for the procedures. Will change her to clear diet and will start the prep this afternoon and will we'll plan on EGD and colonoscopy tomorrow. I have explained this plan to the patient and she indicates her understanding and agreement with this plan. H. pylori by serology is positive however these can remain positive for quite some time even after treatment. We'll biopsy her stomach during her EGD for PyloriTek to see if she is currently infected with H. pylori. We'll hold off on antibiotics until I can confirm that she has a current H. pylori infection. 05/08/18: Pt refused golytely yesterday so no bowel prep has been completed. She is now agreeing to bowel prep. Will give her bisacodyl tablets and mag citrate with plans for EGD and colonoscopy this evening. Pt agreeable with this plan. 05/09/18: Stable, H/H down some but no further melena. EGD completed, duodenitis and small superficial gastric ulcers seen but no active bleeding and no old blood were seen. Colonoscopy not performed because patient refused prep. If melena resumes or H/H continues to decline then she may require a colonoscopy if she'll consent for this. O/W, continue current ulcer therapy. H. pylori test was negative endoscopically so no need to treat for this although H. pylori ab positive but this can stay positive for a long time after treatment for H. pylori. 05/10/18: Stable. H/H down some, getting 2 Units of pRBC. No other evidence of ongoing GI bleeding. No melena (or any BMs for that matter). Will see how she responds to blood transfusion and if H/H stable afterward or if she has further melenotic stools. Will need to pursue colonoscopy if H/H drops or she has further melena. Recommend continued treatment for gastritis, superficial ulcers. 05/11/18: Stable. Good response of H/H to blood transfusion. No BM for several days, no melena. No signs of active GI bleeding. Will, of course, need to follow H/H and BMs for signs of bleeding. I will sign off for now but I 'm happy to see her again to discuss colonoscopy if she exhibits signs of GI bleeding (decreasing H/H or obvious blood in her stool). (2) Anemia Status: Acute Assessment & Plan: 1 episode of melena. May be due to PUD but also with h/o colitis. Will plan on EGD/colonoscopy. (3) History of gastritis Status: Chronic (4) History of Helicobacter pylori infection Status: Chronic (5) History of colitis Status: Chronic Condition Stable. Time Spent: < 30 min Exam Sepsis Risk: No Definite Risk Problem Qualifiers (1) Anemia: Anemia type: unspecified type Qualified Codes: D64.9 - Anemia, unspecified FEROZ NOVOA MD May 11, 2018 08:01
[2018-05-11] MEDS: METOPROLOL SUCC XL 50 MG TABCR 50 MG TAB.ER.24H PO SCH (08:59)
[2018-05-11] MEDS ORDERED: TRIMETH/SULFA DS 160-800MG TAB PO SCH (09:20)
[2018-05-11] MEDS ORDERED: PANT40TA65 PO (10:13)
[2018-05-11] MEDS ORDERED: SULF1TAB24 PO (10:13)
[2018-05-11] MEDS ORDERED: SUCR1TAB51 PO (10:13)
--- NOTE | 2018-05-11 10:24 | Hospitalist Depart ---
Discharge Summary Reason for Hosp/Final Diag: (1) Melena Hospital Course & Plan: She has had no further episodes of blood in stools since Monday. EGD was consistent with non-bleeding superficial gastric ulcers and and duodenitis. Will continue Protonix and Carafate. She did receive 2 units packed red cells during her admission. She will need follow up lab work in approximately one week. (2) Anemia Status: Acute Hospital Course & Plan: Secondary to gastrointestinal blood loss. See Above. (3) Hyponatremia Status: Resolved Hospital Course & Plan: Her levels have improved with IV fluids and stopping her lisinopril. Follow up lab work in one week. (4) Hyperkalemia Status: Acute Hospital Course & Plan: Improved/resolved after stopping lisinopril. Recheck lab in one week. (5) Urinary tract infection Status: Acute Hospital Course & Plan: She did have large leukocytes on her urinalysis. Culture is growing fairly resistant E. coli. She received IV Bactrim on 05/05. She is afebrile and has a normal WBC. Switched to oral antibiotics to complete a full course. Recheck UA and culture in approximately 2 weeks. (6) ARF (acute renal failure) Status: Resolved Hospital Course & Plan: Improved with IV fluids. Creatinine is now normal. (7) Hypothyroid Status: Chronic Hospital Course & Plan: She is on chronic treatment with Synthroid. (8) Hypertension Status: Chronic Hospital Course & Plan: She had been on chronic treatment with lisinopril, clonidine, and metoprolol. Lisinopril and clonidine have been stopped. Metoprolol continued. Monitor BPs. Her SBPs were in 120-145 range on the metoprolol alone. Departure Weight (Pounds): 191 Weight (Ounces): 7.0 Result Diagram: 05/11/1852905/11/18529 Item Value Date Time White Blood Count 11.0 k/uL 05/03/18 0430 Hemoglobin 10.3 g/dL L 05/03/18 0430 Hematocrit 29.4 % L 05/03/18 0430 Platelet Count 176 K/uL 05/03/18 0430 White Blood Count 7.8 k/uL 05/04/18 0539 Hemoglobin 9.4 g/dL L 05/04/18 0539 Mean Corpuscular Volume 94.2 fL 05/04/18 0539 Hematocrit 27.2 % L 05/04/18 0539 Platelet Count 266 K/uL 05/04/18 0539 White Blood Count 6.4 k/uL 05/06/18 0556 Hemoglobin 8.2 g/dL *L 05/06/18 0556 Hematocrit 23.9 % *L 05/06/18 0556 Platelet Count 218 K/uL 05/06/18 0556 White Blood Count 7.5 k/uL 05/07/18 1258 Hemoglobin 8.1 g/dL *L 05/07/18 1258 Hematocrit 23.8 % *L 05/07/18 1258 Platelet Count 256 K/uL 05/07/18 1258 White Blood Count 7.7 k/uL 05/09/18 1311 Hemoglobin 7.9 g/dL *L 05/09/18 1311 Mean Corpuscular Volume 95.2 fL 05/09/18 1311 Platelet Count 257 K/uL 05/09/18 1311 Platelet Count 228 K/uL 05/10/18 0633 Hematocrit 21.9 % *L 05/10/18 0633 Hemoglobin 7.3 g/dL *L 05/10/18 0633 White Blood Count 6.4 k/uL 05/10/18 0633 Sodium Level 124 mmol/L *L 05/03/18 0430 Potassium Level 6.2 mmol/L *H 05/03/18 0430 Chloride Level 99 mmol/L 05/03/18 0430 Carbon Dioxide Level 15 mmol/L L 05/03/18 0430 Blood Urea Nitrogen 95 mg/dl H 05/03/18 0430 Creatinine 1.60 mg/dl H 05/03/18 0430 Glomerular Filtration Rate Calc 30.5 05/03/18 0430 Random Glucose 93 mg/dl 05/03/18 0430 Calcium Level 8.3 mg/dl L 05/03/18 0430 Total Bilirubin 0.3 mg/dl 05/03/18 0430 Aspartate Amino Transf (AST/SGOT) 42 U/L H 05/03/18 0430 Alanine Aminotransferase (ALT/SGPT) 17 U/L 05/03/18 0430 Alkaline Phosphatase 76 U/L 05/03/18 0430 Total Protein 6.2 g/dl L 05/03/18 0430 Albumin 3.1 g/dl L 05/03/18 0430 Thyroid Stimulating Hormone (TSH) 1.66 uIU/ml 05/03/18 0430 Sodium Level 126 mmol/L L 05/03/18 2340 Potassium Level 5.4 mmol/L H 05/03/18 2340 Chloride Level 98 mmol/L 05/03/18 2340 Carbon Dioxide Level 19 mmol/L L 05/03/18 2340 Blood Urea Nitrogen 87 mg/dl H 05/03/18 2340 Creatinine 1.50 mg/dl H 05/03/18 2340 Glomerular Filtration Rate Calc 32.8 05/03/180 Random Glucose 94 mg/dl 05/03/180 Calcium Level 7.8 mg/dl L 05/03/180 Total Bilirubin 0.2 mg/dl 05/03/180 Aspartate Amino Transf (AST/SGOT) 14 U/L 05/03/18 2340 Alanine Aminotransferase (ALT/SGPT) 21 U/L 05/03/18 2340 Alkaline Phosphatase 68 U/L 05/03/180 Total Protein 5.5 g/dl L 05/03/18 2340 Albumin 2.7 g/dl L 05/03/18 2340 Total Creatine Kinase < 20 U/L L 05/03/18 1930 Iron Level 26 ug/dl L 05/06/18 1315 Total Iron Binding Capacity 204 ug/dl L 05/06/18 1315 Percent Iron Saturation 12.7 % 05/06/18 1315 Lactate Dehydrogenase 390 U/L 05/06/18 1315 Sodium Level 137 mmol/L 05/08/18 0524 Potassium Level 4.0 mmol/L 05/08/18 0524 Chloride Level 106 mmol/L 05/08/18 0524 Carbon Dioxide Level 23 mmol/L 05/08/18 0524 Blood Urea Nitrogen 8 mg/dl 05/08/18 0524 Creatinine 0.60 mg/dl 05/08/18 0524 Glomerular Filtration Rate Calc > 60.0 05/08/18 0524 Random Glucose 105 mg/dl 05/08/18 0524 Calcium Level 7.8 mg/dl L 05/08/18 0524 Vitamin B12 Level 564 pg/mL 05/06/18 1315 Folate 13.8 ng/mL 05/06/18 1315 Urine Color Yellow 05/03/181948 Urine Clarity Turbid 05/03/181948 Urine pH 5.0 pH 05/03/181948 Urine Specific Cornelia 1.011 05/03/181948 Urine Protein 30 mg/dL 05/03/181948 Urine Glucose (UA) Negative mg/dL 05/03/181948 Urine Ketones Negative mg/dL 05/03/181948 Urine Blood Negative 05/03/181948 Urine Nitrite Negative 05/03/181948 Urine Bilirubin Negative 05/03/181948 Urine Urobilinogen Negative mg/dL 05/03/181948 Urine Leukocyte Esterase Large H 05/03/181948 Urine RBC 18 /HPF 05/03/181948 Urine WBC 3021 /HPF 05/03/181948 Urine WBC Clumps Many /HPF 05/03/181948 Urine Squamous Epithelial Cells Many /LPF H 05/03/181948 Urine Transitional Epithelial Cells Many /LPF H 05/03/181948 Urine Bacteria Many /HPF H 05/03/181948 Urine Mucus Few /HPF 05/03/181948 Stool Occult Blood (IFOB) Positive H 05/06/18 1610 Biopsy Helicobacter pylori Screen Negative 05/08/18 172 Helicobacter pylori IgG Antibody Positive 05/07/18 0511 Blood Gas Puncture Site Right brachial 05/03/181929 Blood Gas Patient Temperature 98.4 DEGREES 05/03/181929 Arterial Blood pH 7.36 05/03/181929 Arterial Blood Partial Pressure CO2 33 mmHg 05/03/181929 Arterial Blood Partial Pressure O2 99 mmHg *H 05/03/181929 Arterial Blood HCO3 19 mmol/L L 05/03/181929 Arterial Blood Oxygen Saturation 97 % 05/03/181929 Arterial Blood Base Excess -7.0 mmol/L 05/03/181929 Ricky Test Nt avail 05/03/181929 Oxygen Liters/Minute 2l 05/03/181929 Imaging [facility] LAB *LIVE* [address] [place] [address] MIKE ALMANZAR M.D., DIRECTOR OF LABORATORY SERVICES CORETTA MARKS M.D., PATHOLOGIST RUN DATE: 05/05/18 Specimen Inquiry Report PAGE 1 RUN TIME: 917 PATIENT: GERARD PITTMAN ACCT: [id number] LOC: [facility] U : [id number] AGE/SX: 87/F ROOM: [facility] REG : 05/03/[address]: SOCORRO DEL RIO MD FA : 1930 BED: 271 DIS : STATUS: ADM IN TLOC: SPEC #: [id number] OTF: 05/03/18 STATUS: COMP REQ #: [id number] RECD: 05/03/[address] [facility] [address]: YELITZA DHILLON MD SOURCE: CECILIA ENTR: 05/03/[address]: SPDESC: ORDERED: CULT URINE Procedure Result Verified URINE CULTURE Final 05/05/18-917 Organism 1 ESCHERICHIA COLI >100,000 COL/ML ESC COLI M.I.C. RX --------- --- AMPICILLIN >=32 R AMPICILLIN/SULBACTAM >=32 R CEFAZOLIN >=64 R CEFTAZIDIME 16 R CEFTRIAXONE >=64 R CEFEPIME 2 R CEFOXITIN <=4 S ERTAPENEM <=0.5 S CIPROFLOXACIN >=4 R GENTAMICIN <=1 S IMIPENEM <=0.25 S LEVOFLOXACIN >=8 R NITROFURANTOIN <=16 S PIPERACILLIN/TAZOBACTAM >=128 R TOBRAMYCIN <=1 S TRIMETHOPRIM/SULFAMETHOXAZOLE <=20 S [facility]* [address] [place] [address] MIKE ALMANZAR M.D., DIRECTOR OF LABORATORY SERVICES CORETTA MARKS M.D., PATHOLOGIST RUN DATE: 05/09/18 Specimen Inquiry Report PAGE 1 RUN TIME: 1046 PATIENT: GERARD PITTMAN ACCT: [id number] LOC: MED U : [id number] AGE/SX: 87/F ROOM: 2271 REG : 05/03/[address]: SOCORRO DEL RIO MD FA : 1930 BED: 271 DIS : STATUS: ADM IN TLOC: SPEC #: [id number] OTF: 05/03/18 STATUS: COMP REQ #: [id number] RECD: 05/03/[address] [facility] [address]: YELITZA DHILLON MD SOURCE: BLOOD ENTR: 05/03/[address]: SPDES: ORDERED: CULT BLOOD Procedure Result Verified BLOOD CULTURE Final 05/09/18-6 NO GROWTH AFTER FIVE DAYS. ONLY PEDIATRIC AEROBIC BOTTLE COLLECTED (NO ANAEROBIC BOTTLE DRAWN). Ángela [facility] *LIVE* [address] [facility] [address] MIKE ALMANZAR M.D., DIRECTOR OF LABORATORY SERVICES CORETTA MARKS M.D., PATHOLOGIST RUN DATE: 05/09/18 Specimen Inquiry Report PAGE 1 RUN TIME: 1046 PATIENT: GERARD PITTMAN ACCT: [id number] LOC: [facility] U : [id number] AGE/SX: 87/F ROOM: [facility] REG : 05/03/[address]: SOCORRO DEL RIO MD FA : 1930 BED: 271 DIS : STATUS: ADM IN TLOC: SPEC #: [id number] OTF: 05/03/18 STATUS: COMP REQ #: [id number] RECD: 05/03/[address]: YELITZA DHILLON MD SOURCE: BLOOD ENTR: 05/03/[address]: SPDALLISON: ORDERED: CULT BLOOD Procedure Result Verified BLOOD CULTURE Final 05/09/18-1046 NO GROWTH AFTER 5 DAYS IN BOTH THE AEROBIC AND ANAEROBIC BOTTLES. Condition: Improved Discharge: [facility] Follow-Up Labs: Other (CBC, CMP in one week. UA with culture in approximately 2 weeks.) Discharge Instructions Home Meds Active Scripts Pantoprazole Sodium (PANTOPRAZOLE SODIUM) 40 Mg Tablet.dr, 40 MG PO QDAY, #20 TAB.SR 0 Refills Prov:REBEKAH PEREZ MD 05/11/18 Sucralfate (SUCRALFATE) 1 Gm Tablet, 1 GM PO ACHS1, #28 TAB 0 Refills Prov:REBEKAH PEREZ MD 05/11/18 Sulfamethoxazole/Trimethoprim (SULFAMETHOXAZOLE-TMP DS TABLET) 1 Each Tablet, 0.5 EACH PO BID for 7 Days, #7 TAB 0 Refills One-half tab twice a day for seven days. Prov:REBEKAH PEREZ MD 05/11/18 Tramadol Hcl (TRAMADOL HCL) 50 Mg Tablet, 0.5 TAB PO TID, #90 TAB 0 Refills Prov:DELON MORRIS MD 11/20/17 Primidone (PRIMIDONE) 50 Mg Tab, 4 TAB PO HS, #120 TAB 2 Refills Prov:ИРИНА SENIOR MD 06/20/17 Levothyroxine Sodium (LEVOTHYROXINE SODIUM) 50 Mcg Tablet, 50 MCG PO QDAY, #30 TAB 11 Refills Prov:ИРИНА SENIOR MD 06/20/17 Reported Medications [benzocaine lozenge] No Conflict Check, 1 UNIT PO every 24 hours Y for prn 05/04/18 Calcium Carbonate (CALCIUM CARBONATE) 500 Mg Tablet, 500 MG PO PRN 05/04/18 Hydrocortisone Acetate (HYDROCORTISONE ACETATE) 25 Mg Supp.rect, 25 MG RC HS Y for prn, SUPP.RECT 05/04/18 Cholecalciferol (Vitamin D3) (VITAMIN D3) 1,000 Unit Tablet, 1000 UNIT PO DAILY , TAB 05/04/18 Estrogens, Conjugated (Premarin) 0.625 Mg/Gram Cream.appl, 1 ALYSIA TOP MONTOYA TU FR 05/04/18 Nystatin 100,000 Unit/Gm Top Powder (NYSTATIN 100,000 UNIT/GM TOP POWDER) 15 Gm Powder, 15 GM TP PRN, TUBE 05/04/18 Acetaminophen 500 Mg Tab (ACETAMINOPHEN EXTRA STRENGTH) 500 Mg Tablet, 1000 MG PO TID, TAB 05/04/18 Metoprolol Succinate (METOPROLOL SUCCINATE) 50 Mg Tab.er.24h, 1 TAB PO QDAY, TAB 05/03/18 Calcium Polycarbophil (FIBER LAX) 625 Mg Tablet, 2 TAB PO DAILY 05/03/18 Citalopram Hydrobromide (CITALOPRAM HBR) 20 Mg Tablet, 10 MG PO QDAY, #5 TAB 05/03/18 Discontinued Reported Medications Diclofenac Sodium 1% Gel (VOLTAREN 1% GEL) 100 Gm Gel..gram., 4 G TOP QID 05/04/18 Clonidine Hcl (CLONIDINE HCL) 0.1 Mg Tablet, 0.2 MG PO BID, TAB 05/04/18 Lisinopril (LISINOPRIL) 40 Mg Tablet, 20 MG PO QHS, TAB 10/03/17 Clonidine (CLONIDINE 0.2 MG/DAY) 1 Each Patch.tdwk, 1 EACH TD Q7DAY, PATCH.WK 05/03/18 Calcium Carb/Vit D3/Minerals (CALCIUM +D & MINERALS CHEW TAB) 1 Each Tab.chew, 1 EACH PO DAILY, TAB.CHEW 08/17/15 Discontinued Scripts Calcium Carbonate (CALCIUM ANTACID) 200 Mg Tab.chew, 500 MG PO PRN Y for HEARTBURN, #60 TAB.CHEW Prov:KELLY PEREZ MD 10/11/17 Acetaminophen (MAPAP) 325 Mg Tablet, 650 MG PO Q6H Y for PAIN OR FEVER 100 OR GREATER, #30 TAB Prov:KELLY PEREZ MD 10/11/17 Diet: Regular Activity: As Tolerated, No Exertion Special Instructions: Continue oxygen at 2L via nasal cannula. Copies to: [facility] Venous Thromboembolism Antithrombotics Is Pt On Any Antithrombotics?: No Problem Qualifiers (1) Anemia: Anemia type: unspecified type Qualified Codes: D64.9 - Anemia, unspecified (2) Urinary tract infection: Urinary tract infection type: site unspecified Hematuria presence: without hematuria Qualified Codes: N39.0 - Urinary tract infection, site not specified REBEKAH PEREZ MD May 11, 2018 10:24
== END 2018-05-11 12:10 | DRG 690 ==
LOC: ER 18:22 → MED 20:59
PROVIDERS: ADMIT Internal Medicine; ATTEND Internal Medicine
PROC: 0DB78ZX Excision of Stomach, Pylorus, Via Natural or Artificial Opening Endoscopic, Diagnostic (ICD-10-PCS; principal; 2018-05-03)
PROC: 30233N1 Transfusion of Nonautologous Red Blood Cells into Peripheral Vein, Percutaneous Approach (ICD-10-PCS; 2018-05-10)
DX: N39.0 Urinary tract infection, site not specified (principal); N17.9 Acute kidney failure, unspecified; E87.1 Hypo-osmolality and hyponatremia; K92.1 Melena; B96.20 Unspecified Escherichia coli [E. coli] as the cause of diseases classified elsewhere; E03.9 Hypothyroidism, unspecified; I10 Essential (primary) hypertension; E87.5 Hyperkalemia; R29.6 Repeated falls; Z88.0 Allergy status to penicillin; I25.2 Old myocardial infarction; I25.10 Atherosclerotic heart disease of native coronary artery without angina pectoris; J44.9 Chronic obstructive pulmonary disease, unspecified; F03.90 Unspecified dementia, unspecified severity, without behavioral disturbance, psychotic disturbance, mood disturbance, and anxiety; K21.9 Gastro-esophageal reflux disease without esophagitis; Z95.1 Presence of aortocoronary bypass graft; R53.1 Weakness; E11.9 Type 2 diabetes mellitus without complications; M51.36 Other intervertebral disc degeneration, lumbar region; N39.41 Urge incontinence; G25.0 Essential tremor; M85.80 Other specified disorders of bone density and structure, unspecified site; K57.30 Diverticulosis of large intestine without perforation or abscess without bleeding; E55.9 Vitamin D deficiency, unspecified; I95.1 Orthostatic hypotension; K29.80 Duodenitis without bleeding; E66.9 Obesity, unspecified; Z68.36 Body mass index [BMI] 36.0-36.9, adult; R09.02 Hypoxemia; M25.561 Pain in right knee; M25.562 Pain in left knee; Z88.6 Allergy status to analgesic agent; D64.9 Anemia, unspecified; Z86.19 Personal history of other infectious and parasitic diseases; Z87.19 Personal history of other diseases of the digestive system; Z93.3 Colostomy status; M06.9 Rheumatoid arthritis, unspecified; Z78.0 Asymptomatic menopausal state
CPT/HCPCS: 36415; 36430; 36600; 81001; 82040; 82247; 82274; 82310; 82374; 82435; 82550; 82565; 82607; 82746; 82803; 82947; 83010; 83540; 83550; 83605; 83615; 84075; 84132; 84155; 84295; 84443; 84450; 84460; 84520; 85014; 85018; 85025; 85027; 85045; 86677; 86850; 86900; 86901; 86920; 87040; 87077; 87088; 87186; 93005; 96360; 96361; 97161; 97165; 99284; A4353; C9113; J1100; J1940; J1956; J2001; J2405; J2704; J3010; J3490; J7030; J7040; J7050; J7060; P9016

== ENCOUNTER → 2018-05-03 | Outpatient (REF) | payer MEDICARE, MEDICAID ==
[2017-10-04 13:49] VITALS: BMI 32.5
[~2018-05-03] MED LIST changes: +ACET-2146 PO; +BENZOCAINE PO; +CALC-488 PO; +CALC625T64 PO; -CITA-139 PO; +CITA-145 PO; +CLON1PAT20 TD; +DICL100G39 TOP; +ESTR42.5 TOP; +HYDR25SU34 RC; -METF-410 PO; +METF-411 PO; -METF-420 PO; +METF-421 PO; +NYST15PO4 TP
== END ==
LOC: ZZLCC 13:52
PROVIDERS: ATTEND Family Medicine
DX: I10 Essential (primary) hypertension (principal)
CPT/HCPCS: 82040; 82247; 82310; 82374; 82435; 82565; 82947; 84075; 84132; 84155; 84295; 84443; 84450; 84460; 84520; 85027

== ENCOUNTER → 2018-05-03 | Outpatient (CLI) | payer MEDICAID, MEDICARE, OTHER ==
[2017-10-04 13:49] VITALS: BMI 32.5
[~2018-05-03] MED LIST changes: +PANT40TA65 PO; +SUCR1TAB51 PO; +SULF1TAB24 PO
== END ==
LOC: AMB 17:48
PROVIDERS: ATTEND Nurse Practitioner
DX: R11.2 Nausea with vomiting, unspecified (principal); R10.2 Pelvic and perineal pain
CPT/HCPCS: A0425; A0429

== ENCOUNTER → 2018-06-07 | Outpatient (REF) | payer MEDICARE, MEDICAID ==
[2017-10-04 13:49] VITALS: BMI 32.5
[~2018-06-07] MED LIST changes: +ACET-2146 PO; +BENZOCAINE PO; +CALC-488 PO; +CALC625T64 PO; +CLON1PAT20 TD; +DICL100G39 TOP; +ESTR42.5 TOP; +HYDR25SU34 RC; +NYST15PO4 TP; +PANT40TA65 PO; +SUCR1TAB51 PO; +SULF1TAB24 PO
== END ==
LOC: ZZLCC 17:05
PROVIDERS: ATTEND Family Medicine
DX: K21.9 Gastro-esophageal reflux disease without esophagitis (principal)
CPT/HCPCS: 82040; 82247; 82310; 82374; 82435; 82565; 82947; 84075; 84132; 84155; 84295; 84450; 84460; 84520; 85027

== ENCOUNTER → 2018-06-18 | Outpatient (CLI) | payer MEDICARE, MEDICAID ==
[2017-10-04 13:49] VITALS: BMI 32.5
[~2018-06-18] MED LIST changes: +CITA-155 PO; +LISI2.5T60 PO; +OXYGENHOME INH
== END ==
LOC: LAB 09:24
PROVIDERS: ATTEND Family Medicine
DX: E87.6 Hypokalemia (principal)
CPT/HCPCS: 36415; 82310; 82374; 82435; 82565; 82947; 84132; 84295; 84520

== ENCOUNTER → 2018-07-09 | Outpatient (REF) | payer MEDICARE, MEDICAID ==
[2017-10-04 13:49] VITALS: BMI 32.5
== END ==
LOC: ZZLCC 18:19
PROVIDERS: ATTEND Family Medicine
DX: E87.6 Hypokalemia (principal)
CPT/HCPCS: 82310; 82374; 82435; 82565; 82947; 84132; 84295; 84520

== ENCOUNTER → 2018-09-20 | Outpatient (CLI) | payer MEDICARE, MEDICAID ==
[2017-10-04 13:49] VITALS: BMI 32.5
[~2018-09-20] MED LIST changes: +AMLO-113 PO; -AMLO-99 PO; +DEXT1DRO15 OU; -METF-411 PO; -METF-421 PO; +METF-450 PO; +METF-452 PO; +METO25TA23 PO; +RANI-366 PO
[2018-09-20 15:12] LABS: PLATELET COUNT, AUTOMATED 199 K/uL (150-450)
== END ==
LOC: LAB 14:46
PROVIDERS: ATTEND Family Medicine
DX: E03.9 Hypothyroidism, unspecified (principal); I10 Essential (primary) hypertension
CPT/HCPCS: 36415; 82040; 82247; 82310; 82374; 82435; 82565; 82947; 84075; 84132; 84155; 84295; 84443; 84450; 84460; 84520; 85025

== ENCOUNTER → 2018-10-22 | Outpatient (CLI) | payer MEDICARE, MEDICAID ==
[2017-10-04 13:49] VITALS: BMI 32.5
== END ==
LOC: RAD 11:26
PROVIDERS: ATTEND Family Medicine
DX: Z02.9 Encounter for administrative examinations, unspecified (principal)

== ENCOUNTER → 2018-11-25 | Outpatient (REF) | payer MEDICARE, MEDICAID ==
[2017-10-04 13:49] VITALS: BMI 32.5
[~2018-11-25] MED LIST changes: -AMLO-113 PO; +AMLO-127 PO; -GABA-503 PO; +GABA-533 PO
== END ==
LOC: ZZLCC 10:31
PROVIDERS: ATTEND Nurse Practitioner Family
DX: N39.0 Urinary tract infection, site not specified (principal)
CPT/HCPCS: 81001

== ENCOUNTER → 2019-01-11 | Outpatient (REF) | payer MEDICARE, MEDICAID ==
[2017-10-04 13:49] VITALS: BMI 32.5
== END ==
LOC: ZZLCC 19:39
PROVIDERS: ATTEND Family Medicine
DX: R30.9 Painful micturition, unspecified (principal); R51 Headache; R82.998 Other abnormal findings in urine
CPT/HCPCS: 81001; 87088

== ENCOUNTER → 2019-01-22 | Outpatient (CLI) | payer MEDICARE, MEDICAID ==
[2017-10-04 13:49] VITALS: BMI 32.5
--- NOTE | 2019-01-22 15:21 | RADIOLOGY IMAGING REPORT ---
FACILITY: [facility] PATIENT NAME: Valerie Lynne : 1930 MR: [id number] V: [id number] EXAM DATE: ORDERING PHYSICIAN: DELON MORRIS TECHNOLOGIST: Location: [facility] [place] Patient: Valerie Lynne : 1930 Visit/Account:[id number] Date of Sevice: 01/22/2019 Exam type: CHEST PA LAT History: Fever and cough Comparison: October 03, 2017. Findings: There is peribronchial thickening bilaterally slightly increased when compared the prior study. Ther e is no evidence of overt pulmonary edema or pleural effusions. The cardiac silhouette is mildly enl arged but unchanged. There are sternotomy sutures present. There is an exaggeration of the normal t horacic kyphosis secondary to osteopenia and compression fractures in the thoracolumbar spine. IMPRESSION: 1. Stable cardiomegaly Peribronchial thickening slightly increased which may represent an acute peribronchial inflammatory p rocess Report Dictated By: Precious Holloway MD at 01/22/2019 3:15 PM Report E-Signed By: Precious Holloway MD at 01/22/2019 3:17 PM WSN:[email or web address]
== END ==
LOC: RAD 14:40
PROVIDERS: ATTEND Family Medicine
DX: R50.9 Fever, unspecified (principal); R05 Cough
CPT/HCPCS: 71046

== ENCOUNTER → 2019-03-22 | Outpatient (CLI) | payer MEDICARE, MEDICAID ==
[2017-10-04 13:49] VITALS: BMI 32.5
[~2019-03-22] MED LIST changes: +BENZ200C15 PO; +CRAN450T PO; +CYAN250013; +MENT118G TOP; +RANI-318 PO; +[UNRECOGNIZED DRUG - CODE] PO; +[UNRECOGNIZED DRUG - CODE] TP
--- NOTE | 2019-03-22 11:08 | RADIOLOGY IMAGING REPORT ---
FACILITY: [facility] PATIENT NAME: Valerie Lynne : 1930 MR: [id number] V: [id number] EXAM DATE: ORDERING PHYSICIAN: CHELO MOURA TECHNOLOGIST: Location: [facility] Patient: Valerie Lynne : 1930 Visit/Account:[id number] Date of Sevice: 03/22/2019 CHEST PA LAT COMPARISONS: 2 view chest dated March 22, 2019 ADDITIONAL PERTINENT HISTORY: Cough FINDINGS: Cardiomediastinal silhouette: Patient status post median sternotomy. Mild cardiomegaly. 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 Lung reese: Background interstitial scarring with hyperexpanded lung reese. Pleural spaces: Negative. Osseous structures: Spondylitic change involving the thoracolumbar spine Surrounding soft tissues: Negative. IMPRESSION: 1. Hyperexpanded lung reese with background interstitial scarring. 2. No acute cardiopulmonary disease. Report Dictated By: Delfin Borrego MD at 03/22/2019 11:00 AM Report E-Signed By: Delfin Borrego MD at 03/22/2019 11:01 AM WSN:[email or web address]
== END ==
LOC: RAD 09:37
PROVIDERS: ATTEND Nurse Practitioner Primary Care
DX: R05 Cough (principal)
CPT/HCPCS: 71046

== ENCOUNTER → 2019-05-15 | Outpatient (CLI) | payer MEDICARE, MEDICAID ==
[2017-10-04 13:49] VITALS: BMI 32.5
[~2019-05-15] MED LIST changes: -CALC-488 PO; +CALC-743 PO; +CYA1000 PO; +GUAI600T34 PO; +LOPE2CAP15 PO; +MELA1TAB9 PO; -OMEP-125 PO; +OMEP-126 PO; +PSYL1PAC23 PO; -RANI-366 PO; +RANI-54 PO
[2019-05-15 10:29] LABS: PLATELET COUNT, AUTOMATED 234 K/uL (150-450)
== END ==
LOC: LAB 10:14
PROVIDERS: ATTEND Family Medicine
DX: E11.9 Type 2 diabetes mellitus without complications (principal); E03.9 Hypothyroidism, unspecified; I10 Essential (primary) hypertension
CPT/HCPCS: 36415; 82040; 82247; 82310; 82374; 82435; 82565; 82947; 83036; 84075; 84132; 84155; 84295; 84443; 84450; 84460; 84520; 85025

== ENCOUNTER → 2019-05-28 | Outpatient (REF) | payer MEDICARE, MEDICAID ==
[2017-10-04 13:49] VITALS: BMI 32.5
== END ==
LOC: ZZLCC 12:00
PROVIDERS: ATTEND Family Medicine
DX: I10 Essential (primary) hypertension (principal)
CPT/HCPCS: 82310; 82374; 82435; 82565; 82947; 84132; 84295; 84520

== ENCOUNTER → 2019-06-19 | Outpatient (REF) | payer MEDICARE, MEDICAID ==
[2017-10-04 13:49] VITALS: BMI 32.5
[~2019-06-19] MED LIST changes: +AMLO-125 PO; +PHEN97.53 PO
== END ==
LOC: ZZLCC 15:58
PROVIDERS: ATTEND Family Medicine
DX: N39.0 Urinary tract infection, site not specified (principal)
CPT/HCPCS: 81001